=== PATIENT | male | born 1935 | race Caucasian/White ===

== ENCOUNTER 2020-02-17 04:42 | Inpatient (IN) ==
[2020-02-17] MEDS ORDERED: NITROGLYCERIN 2% OINT 1 INCH/GM PACK TOP STA (04:55)
[2020-02-17] MEDS ORDERED: MORPHINE 4 MG/1 ML VIAL IV STA (04:55)
[2020-02-17] MEDS ORDERED: ONDANSETRON 4 MG/2 ML VIAL IV STA (04:55)
[2020-02-17] MEDS ORDERED: methylPREDNISolone SOD SUC 125 MG/2 ML VIAL IV STA (04:55)
[2020-02-17] MEDS ORDERED: FUROSEMIDE 100 MG/10 ML VIAL IV STA (04:55)
[2020-02-17] MEDS ORDERED: VECURONIUM 10 MG VIAL IV STA (05:00)
[2020-02-17] MEDS ORDERED: ETOMIDATE 20 MG/10 ML VIAL IV STA (05:00)
[2020-02-17 05:33] LABS: Allen Test Positive; Pt O2 Delivery Device Ventilator
[2020-02-17 05:34] LABS: ABG Base Excess -2.9 MMOL/L (-2.5-2.5); ABG Oxygen Saturation 99.8 % (95-100); ABG PCO2 62.1 MM HG (35-48); ABG PH 7.229 (7.35-7.45); ABG TCO2 23.8 MMOL/L (23-27)
[2020-02-17 05:38] LABS: Basophils % 0.5 % (0.0-0.8); Eosinophils # 0.3 10*3/uL (0.0-0.87); Eosinophils % 3.1 % (0.00-10.9); Hematocrit 35.6 VOL% (42.0-52.0); Hemoglobin 11.4 GM/DL (14.0-18.0); Immature Granulocytes % 0.7 %; Immature Granulocytes Absolute 0.06 #; Lymphocytes # 2.5 10*3/uL (1.4-4.0); Lymphocytes % 27.8 % (21.2-54.2); Mean Corpuscular Volume 94.9 FL (87-102); Mean Platelet Volume 10.4 FL (9.6-12.0); Monocytes % 5.8 % (1.7-12.7); Neutrophils % 62.1 % (38.7-73.9); Platelet Count 245 T/CUMM (130-400); Red Blood Count 3.75 MC/CUMM (3.8-5.5); Red Cell Distribution Width 13.8 % (9.3-17.3); White Blood Count 8.8 T/CUMM (4-12)
[2020-02-17 05:47] LABS: PT Patient Result 10.9 SECS (9.8-11.9)
[2020-02-17] MEDS ORDERED: ENOXAPARIN 100 MG/ML SYRINGE SUBCUT STA (05:48)
[2020-02-17] MEDS ORDERED: ETOMIDATE 20 MG/10 ML VIAL IV ONE (05:53)
[2020-02-17] MEDS ORDERED: VECURONIUM 10 MG VIAL IV ONE (05:53)
[2020-02-17 06:16] LABS: Albumin 3.2 G/DL (3.4-5.0); Calcium 8.4 MG/DL (8.5-10.1); Total Protein 7.1 G/DL (6.4-8.3)
[2020-02-17] MEDS ORDERED: ALBUTEROL/IPRATROPIUM 3 ML NEB RESP TX PRN (06:21)
[2020-02-17] MEDS ORDERED: ONDANSETRON 4 MG/2 ML VIAL IV PRN (06:21)
[2020-02-17] MEDS ORDERED: ENOXAPARIN 40 MG/0.4 ML SYRINGE SUBCUT SCH (06:30)
[2020-02-17] MEDS ORDERED: GLUCAGON 1 MG VIAL IM PRN (06:33)
[2020-02-17] MEDS ORDERED: DEXTROSE 50% 25 GM/50 ML VIAL IV PRN (06:33)
[2020-02-17 07:44] LABS: Bacteria,Urine Occasional /HPF (Few); Bilirubin,Urine Negative (Negative); Blood, Urine Negative (Negative); Glucose,Urine (UA) 50 mg/dL (Negative); Hyaline Casts,Urine 3 /LPF (0-3); Ketones,Urine Negative (Negative); Mucus,Urine Occasional /LPF (Occasional); Nitrite,Urine Negative (Negative); Protein,Urine 30 MG/DL; RBC,Urine 1 /HPF (0-4); Urine Appearance CLEAR (Clear); Urine Color Yellow (Yellow); Urine Urobilinogen < 2.0 EU/DL (0.2-1.0); WBC,Urine 1 /HPF (0-6)
[2020-02-17] MEDS ORDERED: MIDAZOLAM 10 MG/2 ML VIAL ONE ×2 (07:59→10:11)
[2020-02-17] MEDS ORDERED: FUROSEMIDE 40 MG/4 ML VIAL IV SCH ×2 (08:00→09:00)
[2020-02-17] MEDS ORDERED: MIDAZOLAM 2 MG/2 ML VIAL IV STA (08:00)
[2020-02-17] MEDS ORDERED: MIDAZOLAM 10 MG/2 ML VIAL IV STA ×3 (10:20→14:06)
[2020-02-17 10:47] LABS: ABG Base Excess 2.3 MMOL/L (-2.5-2.5); ABG HCO3 26.5 MMOL/L (20-26); ABG Oxygen Saturation 99.1 % (95-100); ABG PCO2 44.1 MM HG (35-48); ABG PH 7.402 (7.35-7.45); ABG TCO2 24.8 MMOL/L (23-27); Allen Test Positive; Pt O2 Delivery Device Ventilator
[2020-02-17] MEDS: FAMOTIDINE 20 MG TABLET NG SCH ×2 (11:46→21:05)
[2020-02-17] MEDS: carvediloL 12.5 MG TABLET PO SCH ×2 (11:47→21:05)
[2020-02-17] MEDS: CLOPIDOGREL 75 MG TABLET PO SCH (11:47)
[2020-02-17] MEDS: INSULIN LISPRO 100 UNIT/ML SUBCUT SCH ×2 (12:11→18:42)
[2020-02-17] MEDS ORDERED: MAGNESIUM SULF RIDER 2 GM in PREMIX 1 EACH IV PRN (13:55)
[2020-02-17] MEDS ORDERED: LIDOCAINE 1% 20 ML VIAL ONE (15:00)
[2020-02-17 15:04] LABS: CKMB % 7.4 %
[2020-02-17 15:12] LABS: Troponin I 38.9 NG/ML (0.00-0.045)
[2020-02-17] MEDS ORDERED: ENOXAPARIN 30 MG/0.3 ML SYRINGE ONE (15:20)
[2020-02-17] MEDS ORDERED: NITROGLYCERIN 2% OINT 1 INCH/GM PACK TOP ONE (15:22)
[2020-02-17] MEDS ORDERED: NITROGLYCERIN DRIP 50 MG/250 ML BOTTLE IV PRN (16:06)
[2020-02-17] MEDS ORDERED: CLOPIDOGREL 300 MG TABLET ONE (16:12)
[2020-02-17] MEDS ORDERED: ENOXAPARIN 100 MG/ML SYRINGE SUBCUT SCH (17:00)
[2020-02-17] MEDS: RANOLAZINE 500 MG TABLET PO SCH ×2 (18:41→21:04)
[2020-02-17] MEDS: ISOSORBIDE MONONITRATE 20 MG TABLET PO SCH ×2 (18:41→21:05)
[2020-02-17] MEDS: FUROSEMIDE 40 MG/4 ML VIAL IV SCH (18:45)
[2020-02-17] MEDS: ASPIRIN EC 81 MG TABLET PO SCH (21:05)
[2020-02-18] MEDS: INSULIN LISPRO 100 UNIT/ML SUBCUT SCH ×5 (00:27→21:00)
[2020-02-18 04:11] LABS: Basophils % 0.1 % (0.0-0.8); Hematocrit 26.4 VOL% (42.0-52.0); Immature Granulocytes % 0.4 %; Immature Granulocytes Absolute 0.05 #; Lymphocytes # 0.8 10*3/uL (1.4-4.0); Lymphocytes % 6.8 % (21.2-54.2); Mean Corpuscular HGB Conc 32.6 GM/DL (32-36); Mean Corpuscular Volume 91.7 FL (87-102); Mean Platelet Volume 10.6 FL (9.6-12.0); Monocytes % 5.3 % (1.7-12.7); Neutrophils % 87.4 % (38.7-73.9); Red Blood Count 2.88 MC/CUMM (3.8-5.5); Red Cell Distribution Width 13.8 % (9.3-17.3); White Blood Count 11.9 T/CUMM (4-12)
[2020-02-18 04:14] LABS: Hemoglobin 8.6 GM/DL (14.0-18.0); Platelet Count 181 T/CUMM (130-400)
[2020-02-18 04:31] LABS: ABG Base Excess 1.6 MMOL/L (-2.5-2.5); ABG HCO3 25.9 MMOL/L (20-26); ABG PCO2 39.4 MM HG (35-48); ABG PH 7.428 (7.35-7.45); Allen Test Positive; Pt O2 Delivery Device Ventilator
[2020-02-18 04:41] LABS: Calcium 7.9 MG/DL (8.5-10.1); Osmolality,Calculated 287.4 MOS/KG (273-304); Risk Ratio 4.21
[2020-02-18] MEDS: FUROSEMIDE 40 MG/4 ML VIAL IV SCH ×2 (08:33→16:27)
[2020-02-18] MEDS: ISOSORBIDE MONONITRATE 20 MG TABLET PO SCH ×2 (08:33→20:33)
[2020-02-18] MEDS: carvediloL 12.5 MG TABLET PO SCH (08:34)
[2020-02-18] MEDS: RANOLAZINE 500 MG TABLET PO SCH ×2 (08:34→20:33)
[2020-02-18] MEDS: CLOPIDOGREL 75 MG TABLET PO SCH (08:34)
[2020-02-18] MEDS: FAMOTIDINE 20 MG TABLET NG SCH ×2 (08:34→20:33)
[2020-02-18 11:01] LABS: CKMB % 6.1 %
[2020-02-18 11:02] LABS: Troponin I 17.1 NG/ML (0.00-0.045)
[2020-02-18 11:34] LABS: ABG Base Excess 3.2 MMOL/L (-2.5-2.5); ABG HCO3 27.3 MMOL/L (20-26); ABG Oxygen Saturation 99.1 % (95-100); ABG PCO2 43.1 MM HG (35-48); ABG TCO2 25.8 MMOL/L (23-27)
[2020-02-18] MEDS: ROSUVASTATIN 20 MG TABLET PO SCH (20:33)
[2020-02-18] MEDS: carvediloL 25 MG TABLET PO SCH (20:33)
[2020-02-18] MEDS: ASPIRIN EC 81 MG TABLET PO SCH (20:33)
[2020-02-19 04:01] LABS: ABG Base Excess 5.7 MMOL/L (-2.5-2.5); ABG HCO3 29.5 MMOL/L (20-26); ABG Oxygen Saturation 95.7 % (95-100); ABG PCO2 47.3 MM HG (35-48); ABG PH 7.428 (7.35-7.45); ABG PO2 79.8 MM HG (80-95); ABG TCO2 26.7 MMOL/L (23-27); Allen Test Positive; Pt O2 Delivery Device BIPAP
[2020-02-19 04:42] LABS: Basophils % 0.2 % (0.0-0.8); Eosinophils % 0.1 % (0.00-10.9); Hematocrit 27.6 VOL% (42.0-52.0); Hemoglobin 9.2 GM/DL (14.0-18.0); Immature Granulocytes % 0.3 %; Immature Granulocytes Absolute 0.03 #; Lymphocytes # 1.4 10*3/uL (1.4-4.0); Mean Corpuscular HGB Conc 33.3 GM/DL (32-36); Mean Corpuscular Volume 90.5 FL (87-102); Mean Platelet Volume 10.3 FL (9.6-12.0); Monocytes % 6.9 % (1.7-12.7); Neutrophils % 77.5 % (38.7-73.9); Platelet Count 191 T/CUMM (130-400); Red Blood Count 3.05 MC/CUMM (3.8-5.5); Red Cell Distribution Width 14.3 % (9.3-17.3); White Blood Count 9.4 T/CUMM (4-12)
[2020-02-19 05:01] LABS: Calcium 8.2 MG/DL (8.5-10.1); Osmolality,Calculated 283.7 MOS/KG (273-304)
[2020-02-19] MEDS: POTASSIUM CHLORIDE RIDER 10 MEQ in PREMIX 1 EACH IV PRN ×2 (05:34→06:29)
[2020-02-19] MEDS: INSULIN LISPRO 100 UNIT/ML SUBCUT SCH ×4 (07:42→21:06)
[2020-02-19] MEDS: RANOLAZINE 500 MG TABLET PO SCH ×2 (08:58→21:04)
[2020-02-19] MEDS: ISOSORBIDE MONONITRATE 20 MG TABLET PO SCH ×2 (08:59→21:04)
[2020-02-19] MEDS: carvediloL 25 MG TABLET PO SCH ×2 (08:59→21:04)
[2020-02-19] MEDS: FAMOTIDINE 20 MG TABLET NG SCH ×2 (08:59→21:05)
[2020-02-19] MEDS: CLOPIDOGREL 75 MG TABLET PO SCH (08:59)
[2020-02-19] MEDS: FUROSEMIDE 40 MG/4 ML VIAL IV SCH ×2 (09:01→17:20)
[2020-02-19] MEDS: ROSUVASTATIN 20 MG TABLET PO SCH (21:03)
[2020-02-19] MEDS: ASPIRIN EC 81 MG TABLET PO SCH (21:05)
[2020-02-20] MEDS: INSULIN LISPRO 100 UNIT/ML SUBCUT SCH ×4 (07:41→20:55)
[2020-02-20] MEDS: FUROSEMIDE 40 MG/4 ML VIAL IV SCH ×2 (08:16→16:49)
[2020-02-20] MEDS: RANOLAZINE 500 MG TABLET PO SCH ×2 (08:17→20:54)
[2020-02-20] MEDS: FAMOTIDINE 20 MG TABLET NG SCH ×2 (08:17→20:53)
[2020-02-20] MEDS: CLOPIDOGREL 75 MG TABLET PO SCH (08:17)
[2020-02-20] MEDS: carvediloL 25 MG TABLET PO SCH ×2 (08:17→20:54)
[2020-02-20] MEDS: ISOSORBIDE MONONITRATE 20 MG TABLET PO SCH ×2 (08:19→20:53)
[2020-02-20] MEDS ORDERED: OLMESARTAN 20 MG TABLET PO ONE (12:01)
[2020-02-20] MEDS: ASPIRIN EC 81 MG TABLET PO SCH (20:53)
[2020-02-20] MEDS: ROSUVASTATIN 20 MG TABLET PO SCH (20:54)
[2020-02-21 06:02] LABS: Basophils % 0.4 % (0.0-0.8); Eosinophils # 0.3 10*3/uL (0.0-0.87); Hematocrit 33.3 VOL% (42.0-52.0); Hemoglobin 10.9 GM/DL (14.0-18.0); Immature Granulocytes % 1.7 %; Immature Granulocytes Absolute 0.14 #; Lymphocytes # 2.1 10*3/uL (1.4-4.0); Lymphocytes % 25.1 % (21.2-54.2); Mean Corpuscular HGB Conc 32.7 GM/DL (32-36); Mean Platelet Volume 10.5 FL (9.6-12.0); Monocytes % 8.2 % (1.7-12.7); Neutrophils % 61.6 % (38.7-73.9); Platelet Count 229 T/CUMM (130-400); Red Blood Count 3.62 MC/CUMM (3.8-5.5); Red Cell Distribution Width 13.6 % (9.3-17.3); White Blood Count 8.3 T/CUMM (4-12)
[2020-02-21 06:24] LABS: Hypochromasia Slight
[2020-02-21 06:25] LABS: Microcytosis Slight; Ovalocytes Slight; Platelet Estimate Normal
[2020-02-21 06:34] LABS: Calcium 8.8 MG/DL (8.5-10.1); Osmolality,Calculated 289.5 MOS/KG (273-304)
[2020-02-21] MEDS: INSULIN LISPRO 100 UNIT/ML SUBCUT SCH ×4 (09:25→20:27)
[2020-02-21] MEDS: OLMESARTAN 20 MG TABLET PO SCH (09:26)
[2020-02-21] MEDS: ISOSORBIDE MONONITRATE 20 MG TABLET PO SCH ×2 (09:26→21:40)
[2020-02-21] MEDS: carvediloL 25 MG TABLET PO SCH ×2 (09:26→21:41)
[2020-02-21] MEDS: FAMOTIDINE 20 MG TABLET NG SCH ×2 (09:26→21:40)
[2020-02-21] MEDS: CLOPIDOGREL 75 MG TABLET PO SCH (09:26)
[2020-02-21] MEDS: RANOLAZINE 500 MG TABLET PO SCH ×2 (09:26→21:41)
[2020-02-21] MEDS: FUROSEMIDE 40 MG/4 ML VIAL IV SCH ×2 (09:27→16:34)
[2020-02-21] MEDS: DOCUSATE SODIUM 100 MG CAPSULE PO SCH ×2 (12:25→21:41)
[2020-02-21] MEDS ORDERED: BISACODYL 5 MG TABLET PO ONE (13:13)
[2020-02-21] MEDS: ROSUVASTATIN 20 MG TABLET PO SCH (21:40)
[2020-02-21] MEDS: ASPIRIN EC 81 MG TABLET PO SCH (21:41)
[2020-02-22 04:48] LABS: Basophils % 0.3 % (0.0-0.8); Eosinophils # 0.3 10*3/uL (0.0-0.87); Eosinophils % 4.2 % (0.00-10.9); Immature Granulocytes % 0.8 %; Immature Granulocytes Absolute 0.06 #; Lymphocytes # 1.7 10*3/uL (1.4-4.0); Lymphocytes % 24.5 % (21.2-54.2); Mean Corpuscular HGB Conc 33.3 GM/DL (32-36); Mean Corpuscular Volume 90.9 FL (87-102); Mean Platelet Volume 10.4 FL (9.6-12.0); Monocytes % 9.9 % (1.7-12.7); Neutrophils % 60.3 % (38.7-73.9); Platelet Count 205 T/CUMM (130-400); Red Cell Distribution Width 13.4 % (9.3-17.3); White Blood Count 7.1 T/CUMM (4-12)
[2020-02-22 05:10] LABS: Calcium 8.6 MG/DL (8.5-10.1)
[2020-02-22] MEDS: INSULIN LISPRO 100 UNIT/ML SUBCUT SCH ×2 (08:42→12:10)
[2020-02-22] MEDS: ISOSORBIDE MONONITRATE 20 MG TABLET PO SCH (09:39)
[2020-02-22] MEDS: DOCUSATE SODIUM 100 MG CAPSULE PO SCH (09:39)
[2020-02-22] MEDS: CLOPIDOGREL 75 MG TABLET PO SCH (09:39)
[2020-02-22] MEDS: carvediloL 25 MG TABLET PO SCH (09:39)
[2020-02-22] MEDS: RANOLAZINE 500 MG TABLET PO SCH (09:39)
[2020-02-22] MEDS: FUROSEMIDE 40 MG/4 ML VIAL IV SCH (09:40)
[2020-02-22] MEDS: OLMESARTAN 20 MG TABLET PO SCH (09:40)
[2020-02-22] MEDS: FAMOTIDINE 20 MG TABLET NG SCH (09:49)
[2020-02-22] MEDS ORDERED: POTASSIUM CHLORIDE 20 MEQ TABLET PO ONE (10:58)
[2020-02-22 12:09] VITALS: BP 87/43
== END 2020-02-22 15:24 | disposition home or self-care (01) | DRG 246 ==
LOC: EDBD → EDUNIT# → N.ED 04:42 → SUATTDRO 06:21 → N.EDINP 06:21 → N.CC 17:36 → N.TELEN 02-19 16:10
PROVIDERS: ADMIT Internal Medicine; ATTEND Family Medicine

== ENCOUNTER 2020-09-29 06:57 | Inpatient (IN) ==
[2020-09-29 07:53] LABS: Basophils % 0.1 % (0.0-0.8); Eosinophils # 0.1 10*3/uL (0.0-0.87); Eosinophils % 0.8 % (0.00-10.9); Hematocrit 29.1 VOL% (42.0-52.0); Hemoglobin 9.2 GM/DL (14.0-18.0); Immature Granulocytes % 0.6 %; Immature Granulocytes Absolute 0.06 #; Lymphocytes # 0.9 10*3/uL (1.4-4.0); Lymphocytes % 9.4 % (21.2-54.2); Mean Corpuscular HGB Conc 31.6 GM/DL (32-36); Mean Corpuscular Volume 89.3 FL (87-102); Mean Platelet Volume 10.3 FL (9.6-12.0); Monocytes % 5.1 % (1.7-12.7); Platelet Count 170 T/CUMM (130-400); Red Blood Count 3.26 MC/CUMM (3.8-5.5); Red Cell Distribution Width 14.1 % (9.3-17.3); White Blood Count 9.6 T/CUMM (4-12)
[2020-09-29 07:59] LABS: Calcium 8.8 MG/DL (8.5-10.1); Osmolality,Calculated 285.8 MOS/KG (273-304); Potassium 3.9 MMOL/L (3.5-5.1)
[2020-09-29 08:04] LABS: PT Patient Result 11.7 SECS (10.5-12.0)
[2020-09-29 09:01] LABS: Bacteria,Urine Occasional /HPF (Few); Bilirubin,Urine Negative (Negative); Blood, Urine Negative (Negative); Glucose,Urine (UA) Negative (Negative); Hyaline Casts,Urine 1 /LPF (0-3); Ketones,Urine Negative (Negative); Mucus,Urine Occasional /LPF (Occasional); Nitrite,Urine Negative (Negative); Protein,Urine 30 MG/DL; RBC,Urine 6 /HPF (0-4); Squamous Epithelial Cell,Urine Occasional /HPF (0-10); Urine Appearance CLEAR (Clear); Urine Color Yellow (Yellow); Urine Specific Gravity 1.016 (1.001-1.035); Urine Urobilinogen < 2.0 EU/DL (0.2-1.0)
[2020-09-29] MEDS ORDERED: MORPHINE 4 MG/1 ML VIAL IV ONE (09:15)
[2020-09-29] MEDS ORDERED: ONDANSETRON 4 MG/2 ML VIAL ONE (09:15)
[2020-09-29] MEDS ORDERED: ONDANSETRON 4 MG/2 ML VIAL IV ONE (09:15)
[2020-09-29] MEDS ORDERED: MORPHINE 4 MG/1 ML VIAL ONE (09:16)
[2020-09-29] MEDS ORDERED: GLUCAGON 1 MG VIAL IM PRN ×2 (10:10→12:54)
[2020-09-29] MEDS ORDERED: DEXTROSE 50% 25 GM/50 ML VIAL IV PRN ×2 (10:10→12:54)
[2020-09-29] MEDS ORDERED: NITROGLYCERIN SL 0.4 MG TABLET SL PRN (10:59)
[2020-09-29] MEDS ORDERED: FLUTICASONE 50 MCG NASAL SPRAY 16 GM BOTTLE BOTH NARES PRN (12:27)
[2020-09-29 12:55] LABS: % Iron Saturation 17.2 % (18-50); Ferritin 42.1 ng/ml (26-388)
[2020-09-29 13:29] LABS: Folate 16.29 NG/ML (5.38-24.0)
[2020-09-29] MEDS ORDERED: TUBERCULIN SKIN TEST 0.1 ML SYRINGE INTRADERM ONE (13:59)
[2020-09-29] MEDS: RANOLAZINE 500 MG TABLET PO SCH ×2 (14:01→21:25)
[2020-09-29] MEDS: OLMESARTAN 20 MG TABLET PO SCH (14:02)
[2020-09-29] MEDS: carvediloL 25 MG TABLET PO SCH ×2 (14:02→21:25)
[2020-09-29] MEDS: hydroCHLOROthiazide 25 MG TABLET PO SCH (14:03)
[2020-09-29] MEDS: FUROSEMIDE 20 MG TABLET PO SCH (14:03)
[2020-09-29] MEDS: MORPHINE 4 MG/1 ML VIAL IV PRN (17:27)
[2020-09-29] MEDS: ISOSORBIDE MONONITRATE 20 MG TABLET PO SCH ×2 (17:37→21:25)
[2020-09-29] MEDS: INSULIN LISPRO 100 UNIT/ML SUBCUT SCH (18:54)
[2020-09-29] MEDS ORDERED: carvediloL 25 MG TABLET PO SCH (21:00)
[2020-09-29] MEDS ORDERED: RANOLAZINE 1000 MG PO SCH (21:00)
[2020-09-29] MEDS ORDERED: ISOSORBIDE MONONITRATE 10 MG PO SCH (21:00)
[2020-09-29] MEDS: ROSUVASTATIN 20 MG TABLET PO SCH (21:25)
[2020-09-29] MEDS: ASPIRIN EC 81 MG TABLET PO SCH (21:25)
[2020-09-30] MEDS: MORPHINE 4 MG/1 ML VIAL IV PRN (00:12)
[2020-09-30] MEDS: INSULIN LISPRO 100 UNIT/ML SUBCUT SCH ×5 (01:40→23:59)
[2020-09-30] MEDS ORDERED: MEPERIDINE 25 MG/1 ML VIAL IV PRN (06:32)
[2020-09-30] MEDS ORDERED: ONDANSETRON 4 MG/2 ML VIAL IV PRN (06:32)
[2020-09-30] MEDS ORDERED: PROMETHAZINE INJ 25 MG in SODIUM CHLORIDE 0.9% 50 ML IV PRN (06:32)
[2020-09-30] MEDS ORDERED: HYDROmorphone 2 MG/1 ML VIAL IV PRN (06:32)
[2020-09-30] MEDS ORDERED: diphenhydrAMINE 50 MG/1 ML VIAL IV PRN (06:32)
[2020-09-30] MEDS ORDERED: propofoL 200 MG/20 ML VIAL IV ONE (06:46)
[2020-09-30] MEDS ORDERED: LIDOCAINE 2% 5 ML VIAL ONE (06:46)
[2020-09-30] MEDS ORDERED: ONDANSETRON 4 MG/2 ML VIAL ONE (06:46)
[2020-09-30] MEDS ORDERED: SUCCINYLCHOLINE 200 MG/10 ML VIAL ONE (06:46)
[2020-09-30] MEDS ORDERED: DEXAMETHASONE 4 MG/1 ML VIAL ONE (06:46)
[2020-09-30] MEDS ORDERED: ROCURONIUM 50 MG/5 ML VIAL IV ONE (06:46)
[2020-09-30] MEDS ORDERED: fentaNYL 100 MCG/2 ML VIAL ONE (06:47)
[2020-09-30 07:03] LABS: Basophils % 0.3 % (0.0-0.8); Eosinophils # 0.3 10*3/uL (0.0-0.87); Eosinophils % 3.9 % (0.00-10.9); Hematocrit 27.1 VOL% (42.0-52.0); Hemoglobin 8.9 GM/DL (14.0-18.0); Immature Granulocytes % 0.3 %; Immature Granulocytes Absolute 0.02 #; Lymphocytes # 0.9 10*3/uL (1.4-4.0); Lymphocytes % 13.6 % (21.2-54.2); Mean Corpuscular HGB Conc 32.8 GM/DL (32-36); Mean Corpuscular Volume 89.4 FL (87-102); Mean Platelet Volume 10.1 FL (9.6-12.0); Neutrophils % 72.9 % (38.7-73.9); Platelet Count 141 T/CUMM (130-400); Red Blood Count 3.03 MC/CUMM (3.8-5.5); Red Cell Distribution Width 13.8 % (9.3-17.3); White Blood Count 6.9 T/CUMM (4-12)
[2020-09-30 07:16] LABS: Calcium 8.8 MG/DL (8.5-10.1); Osmolality,Calculated 276.2 MOS/KG (273-304); Potassium 4.1 MMOL/L (3.5-5.1)
[2020-09-30 07:21] LABS: Risk Ratio 2.02; VLDL CHOLESTEROL 19.2 MG/DL
[2020-09-30] MEDS ORDERED: PHENYLEPHRINE 10 MG/1 ML VIAL IV ONE (07:30)
[2020-09-30] MEDS ORDERED: ePHEDrine 50 MG/ML VIAL ONE (07:46)
[2020-09-30] MEDS ORDERED: ALBUMIN 5% 12.5 GM/250 ML VIAL IV ONE ×2 (07:47→07:48)
[2020-09-30] MEDS ORDERED: CALCIUM CHLORIDE 1,000 MG/10 ML VIAL IV ONE (08:02)
[2020-09-30] MEDS ORDERED: ceFAZolin 1,000 MG VIAL ONE (08:02)
[2020-09-30] MEDS ORDERED: SODIUM CHLORIDE 0.9% 100 ML IV ONE (08:15)
[2020-09-30] MEDS ORDERED: EPINEPHrine 1 MG/ML VIAL ONE (08:15)
[2020-09-30] MEDS ORDERED: ACETAMINOPHEN INJ 1,000 MG/100 ML VIAL IV ONE (08:15)
[2020-09-30] MEDS ORDERED: GLYCOPYRROLATE 0.4 MG/2 ML VIAL ONE (08:46)
[2020-09-30] MEDS ORDERED: NEOSTIGMINE 10 MG/10 ML VIAL ONE (08:46)
[2020-09-30] MEDS ORDERED: SEVOFLURANE 1 UNIT/15 MINUTE INH ONE (08:55)
[2020-09-30] MEDS ORDERED: VALSARTAN HYDROCHLOROTHIAZIDE PO SCH (09:00)
[2020-09-30] MEDS ORDERED: BUPIVACAINE 0.5% 50 ML VIAL ONE (09:13)
[2020-09-30] MEDS ORDERED: KETAMINE 500 MG/10 ML VIAL ONE (09:18)
[2020-09-30] MEDS ORDERED: MAGNESIUM HYDROXIDE SUSP 30 ML UDCUP PO PRN (10:25)
[2020-09-30] MEDS: ISOSORBIDE MONONITRATE 20 MG TABLET PO SCH ×2 (11:17→23:18)
[2020-09-30] MEDS: carvediloL 25 MG TABLET PO SCH ×2 (11:17→23:17)
[2020-09-30] MEDS: FUROSEMIDE 20 MG TABLET PO SCH (11:17)
[2020-09-30] MEDS: hydroCHLOROthiazide 25 MG TABLET PO SCH (11:18)
[2020-09-30] MEDS: RANOLAZINE 500 MG TABLET PO SCH ×2 (11:18→23:17)
[2020-09-30] MEDS: OLMESARTAN 20 MG TABLET PO SCH (11:18)
[2020-09-30] MEDS: CHOLECALCIFEROL 1,000 UNIT TABLET PO SCH (11:18)
[2020-09-30] MEDS: amLODIPine 2.5 MG TABLET PO SCH (11:18)
[2020-09-30] MEDS: oxyCODONE/ACETAMINOPHEN 5-325 MG TABLET PO PRN ×2 (11:19→23:18)
[2020-09-30] MEDS: INSULIN GLARGINE 100 UNIT/ML SUBCUT SCH (11:19)
[2020-09-30] MEDS ORDERED: ONDANSETRON 4 MG/2 ML VIAL IV ONE (14:20)
[2020-09-30] MEDS: ACETAMINOPHEN 500 MG TABLET PO SCH ×2 (14:29→18:30)
[2020-09-30] MEDS: ceFAZolin 2,000 MG/50 ML DUPLEX IV SCH ×2 (15:54→23:16)
[2020-09-30] MEDS: ROSUVASTATIN 20 MG TABLET PO SCH (23:17)
[2020-09-30] MEDS: ASPIRIN EC 81 MG TABLET PO SCH (23:17)
[2020-09-30] MEDS: IRON (CARBONYL) 45 MG TABLET PO SCH (23:18)
[2020-10-01] MEDS: ACETAMINOPHEN 500 MG TABLET PO SCH ×2 (02:14→10:11)
[2020-10-01] MEDS: INSULIN LISPRO 100 UNIT/ML SUBCUT SCH ×4 (05:57→23:18)
[2020-10-01 06:38] LABS: Hematocrit 24.1 VOL% (42.0-52.0); Hemoglobin 7.9 GM/DL (14.0-18.0); Immature Granulocytes % 0.3 %; Immature Granulocytes Absolute 0.02 #; Lymphocytes # 0.8 10*3/uL (1.4-4.0); Lymphocytes % 10.4 % (21.2-54.2); Mean Corpuscular HGB Conc 32.8 GM/DL (32-36); Mean Corpuscular Volume 88.6 FL (87-102); Mean Platelet Volume 10.8 FL (9.6-12.0); Monocytes % 11.4 % (1.7-12.7); Neutrophils % 77.9 % (38.7-73.9); Platelet Count 130 T/CUMM (130-400); Red Blood Count 2.72 MC/CUMM (3.8-5.5); Red Cell Distribution Width 13.5 % (9.3-17.3); White Blood Count 7.7 T/CUMM (4-12)
[2020-10-01 06:59] LABS: Calcium 8.9 MG/DL (8.5-10.1); Osmolality,Calculated 280.1 MOS/KG (273-304); Potassium 4.4 MMOL/L (3.5-5.1)
[2020-10-01] MEDS ORDERED: ACETAMINOPHEN 500 MG TABLET ONE (09:38)
[2020-10-01] MEDS: IRON (CARBONYL) 45 MG TABLET PO SCH ×2 (10:11→21:36)
[2020-10-01] MEDS: ISOSORBIDE MONONITRATE 20 MG TABLET PO SCH ×2 (10:12→21:36)
[2020-10-01] MEDS: hydroCHLOROthiazide 25 MG TABLET PO SCH (10:12)
[2020-10-01] MEDS: POTASSIUM CHLORIDE 8 MEQ CAPSULE PO SCH (10:12)
[2020-10-01] MEDS: carvediloL 25 MG TABLET PO SCH ×2 (10:12→21:36)
[2020-10-01] MEDS: amLODIPine 2.5 MG TABLET PO SCH (10:12)
[2020-10-01] MEDS: RANOLAZINE 500 MG TABLET PO SCH ×2 (10:12→21:36)
[2020-10-01] MEDS: CHOLECALCIFEROL 1,000 UNIT TABLET PO SCH (10:12)
[2020-10-01] MEDS: OLMESARTAN 20 MG TABLET PO SCH (10:12)
[2020-10-01] MEDS: FUROSEMIDE 20 MG TABLET PO SCH (12:14)
[2020-10-01] MEDS: CLOPIDOGREL 75 MG TABLET PO SCH (12:15)
[2020-10-01] MEDS: INSULIN GLARGINE 100 UNIT/ML SUBCUT SCH (12:15)
[2020-10-01] MEDS ORDERED: SODIUM CHLORIDE 0.9% 1,000 ML IV PRN (15:12)
[2020-10-01] MEDS: ROSUVASTATIN 20 MG TABLET PO SCH (21:35)
[2020-10-01] MEDS: cilostazoL 50 MG TABLET PO SCH (21:36)
[2020-10-01] MEDS: ASPIRIN EC 81 MG TABLET PO SCH (21:36)
[2020-10-02 05:38] LABS: Basophils % 0.1 % (0.0-0.8); Eosinophils # 0.1 10*3/uL (0.0-0.87); Eosinophils % 1.3 % (0.00-10.9); Hematocrit 24.3 VOL% (42.0-52.0); Hemoglobin 7.9 GM/DL (14.0-18.0); Immature Granulocytes % 0.3 %; Immature Granulocytes Absolute 0.02 #; Lymphocytes # 1.1 10*3/uL (1.4-4.0); Mean Corpuscular HGB Conc 32.5 GM/DL (32-36); Mean Corpuscular Volume 90.7 FL (87-102); Mean Platelet Volume 10.2 FL (9.6-12.0); Monocytes % 10.8 % (1.7-12.7); Neutrophils % 72.5 % (38.7-73.9); Platelet Count 122 T/CUMM (130-400); Red Blood Count 2.68 MC/CUMM (3.8-5.5); Red Cell Distribution Width 13.8 % (9.3-17.3); White Blood Count 7.2 T/CUMM (4-12)
[2020-10-02 05:55] LABS: Calcium 8.4 MG/DL (8.5-10.1); Osmolality,Calculated 279.4 MOS/KG (273-304); Potassium 4.1 MMOL/L (3.5-5.1)
[2020-10-02] MEDS: INSULIN LISPRO 100 UNIT/ML SUBCUT SCH ×3 (06:19→18:01)
[2020-10-02] MEDS: RANOLAZINE 500 MG TABLET PO SCH ×2 (08:36→21:12)
[2020-10-02] MEDS: CLOPIDOGREL 75 MG TABLET PO SCH (08:37)
[2020-10-02] MEDS: carvediloL 25 MG TABLET PO SCH ×2 (08:37→21:13)
[2020-10-02] MEDS: CHOLECALCIFEROL 1,000 UNIT TABLET PO SCH (08:37)
[2020-10-02] MEDS: OLMESARTAN 20 MG TABLET PO SCH (08:37)
[2020-10-02] MEDS: cilostazoL 50 MG TABLET PO SCH ×2 (08:37→21:13)
[2020-10-02] MEDS: IRON (CARBONYL) 45 MG TABLET PO SCH ×2 (08:38→21:13)
[2020-10-02] MEDS ORDERED: CLOPIDOGREL 75 MG TABLET PO SCH (09:00)
[2020-10-02] MEDS: ISOSORBIDE MONONITRATE 20 MG TABLET PO SCH ×2 (11:04→21:12)
[2020-10-02] MEDS: hydroCHLOROthiazide 25 MG TABLET PO SCH (11:04)
[2020-10-02] MEDS: amLODIPine 2.5 MG TABLET PO SCH (11:05)
[2020-10-02] MEDS ORDERED: SODIUM CHLORIDE 0.9% 1,000 ML IV PRN (11:24)
[2020-10-02] MEDS: TAMSULOSIN 0.4 MG CAPSULE PO SCH (11:56)
[2020-10-02] MEDS: FUROSEMIDE 20 MG TABLET PO SCH (11:56)
[2020-10-02] MEDS: INSULIN GLARGINE 100 UNIT/ML SUBCUT SCH (12:00)
[2020-10-02] MEDS: ROSUVASTATIN 20 MG TABLET PO SCH (21:12)
[2020-10-02] MEDS: ASPIRIN EC 81 MG TABLET PO SCH (21:13)
[2020-10-03] MEDS: INSULIN LISPRO 100 UNIT/ML SUBCUT SCH ×4 (00:53→18:46)
[2020-10-03 08:08] LABS: Basophils % 0.3 % (0.0-0.8); Eosinophils # 0.1 10*3/uL (0.0-0.87); Eosinophils % 0.6 % (0.00-10.9); Hemoglobin 8.8 GM/DL (14.0-18.0); Immature Granulocytes % 0.6 %; Immature Granulocytes Absolute 0.05 #; Lymphocytes # 0.9 10*3/uL (1.4-4.0); Lymphocytes % 11.7 % (21.2-54.2); Mean Corpuscular HGB Conc 33.8 GM/DL (32-36); Mean Corpuscular Volume 85.8 FL (87-102); Mean Platelet Volume 10.1 FL (9.6-12.0); Neutrophils % 79.8 % (38.7-73.9); Platelet Count 144 T/CUMM (130-400); Red Blood Count 3.03 MC/CUMM (3.8-5.5)
[2020-10-03 08:44] LABS: Osmolality,Calculated 283.2 MOS/KG (273-304); Potassium 3.9 MMOL/L (3.5-5.1)
[2020-10-03] MEDS: RANOLAZINE 500 MG TABLET PO SCH ×2 (08:57→20:58)
[2020-10-03] MEDS: ISOSORBIDE MONONITRATE 20 MG TABLET PO SCH ×2 (08:57→20:57)
[2020-10-03] MEDS: CLOPIDOGREL 75 MG TABLET PO SCH (08:57)
[2020-10-03] MEDS: TAMSULOSIN 0.4 MG CAPSULE PO SCH ×2 (08:57→20:58)
[2020-10-03] MEDS: CHOLECALCIFEROL 1,000 UNIT TABLET PO SCH (08:58)
[2020-10-03] MEDS: carvediloL 25 MG TABLET PO SCH (08:58)
[2020-10-03] MEDS: POTASSIUM CHLORIDE 8 MEQ CAPSULE PO SCH (08:58)
[2020-10-03] MEDS: cilostazoL 50 MG TABLET PO SCH ×2 (08:58→20:57)
[2020-10-03] MEDS: IRON (CARBONYL) 45 MG TABLET PO SCH ×2 (09:00→20:58)
[2020-10-03] MEDS: FUROSEMIDE 20 MG TABLET PO SCH (13:03)
[2020-10-03] MEDS: INSULIN GLARGINE 100 UNIT/ML SUBCUT SCH (13:54)
[2020-10-03] MEDS: ROSUVASTATIN 20 MG TABLET PO SCH (20:57)
[2020-10-03] MEDS: ASPIRIN EC 81 MG TABLET PO SCH (20:58)
[2020-10-03] MEDS: carvediloL 12.5 MG TABLET PO SCH (21:03)
[2020-10-04] MEDS: INSULIN LISPRO 100 UNIT/ML SUBCUT SCH ×5 (01:05→23:46)
[2020-10-04 05:15] LABS: Basophils % 0.1 % (0.0-0.8); Eosinophils # 0.1 10*3/uL (0.0-0.87); Eosinophils % 1.5 % (0.00-10.9); Hemoglobin 8.1 GM/DL (14.0-18.0); Immature Granulocytes % 0.4 %; Immature Granulocytes Absolute 0.03 #; Lymphocytes # 0.8 10*3/uL (1.4-4.0); Lymphocytes % 11.3 % (21.2-54.2); Mean Corpuscular HGB Conc 33.8 GM/DL (32-36); Mean Corpuscular Volume 86.6 FL (87-102); Mean Platelet Volume 10.1 FL (9.6-12.0); Monocytes % 7.5 % (1.7-12.7); Neutrophils % 79.2 % (38.7-73.9); Platelet Count 165 T/CUMM (130-400); Red Blood Count 2.77 MC/CUMM (3.8-5.5); White Blood Count 6.8 T/CUMM (4-12)
[2020-10-04 05:35] LABS: Calcium 8.5 MG/DL (8.5-10.1); Osmolality,Calculated 287.1 MOS/KG (273-304); Potassium 3.8 MMOL/L (3.5-5.1)
[2020-10-04] MEDS: ISOSORBIDE MONONITRATE 20 MG TABLET PO SCH ×2 (09:21→20:46)
[2020-10-04] MEDS: CHOLECALCIFEROL 1,000 UNIT TABLET PO SCH (09:21)
[2020-10-04] MEDS: IRON (CARBONYL) 45 MG TABLET PO SCH ×2 (09:22→20:46)
[2020-10-04] MEDS: carvediloL 12.5 MG TABLET PO SCH ×2 (09:22→20:46)
[2020-10-04] MEDS: CLOPIDOGREL 75 MG TABLET PO SCH (09:22)
[2020-10-04] MEDS: RANOLAZINE 500 MG TABLET PO SCH ×2 (09:22→20:46)
[2020-10-04] MEDS: TAMSULOSIN 0.4 MG CAPSULE PO SCH ×2 (09:22→20:45)
[2020-10-04] MEDS: cilostazoL 50 MG TABLET PO SCH ×2 (09:22→20:46)
[2020-10-04] MEDS: FUROSEMIDE 20 MG TABLET PO SCH (11:25)
[2020-10-04] MEDS: INSULIN GLARGINE 100 UNIT/ML SUBCUT SCH (11:35)
[2020-10-04] MEDS: ONDANSETRON 4 MG/2 ML VIAL IV PRN (11:35)
[2020-10-04] MEDS: ROSUVASTATIN 20 MG TABLET PO SCH (20:45)
[2020-10-04] MEDS: ASPIRIN EC 81 MG TABLET PO SCH (20:45)
[2020-10-05] MEDS: INSULIN LISPRO 100 UNIT/ML SUBCUT SCH ×3 (05:45→17:56)
[2020-10-05 07:54] LABS: Basophils % 0.2 % (0.0-0.8); Eosinophils # 0.2 10*3/uL (0.0-0.87); Eosinophils % 2.7 % (0.00-10.9); Hematocrit 23.6 VOL% (42.0-52.0); Hemoglobin 8.1 GM/DL (14.0-18.0); Immature Granulocytes % 0.5 %; Immature Granulocytes Absolute 0.03 #; Lymphocytes # 0.6 10*3/uL (1.4-4.0); Lymphocytes % 10.3 % (21.2-54.2); Mean Corpuscular HGB Conc 34.3 GM/DL (32-36); Mean Corpuscular Volume 86.1 FL (87-102); Mean Platelet Volume 9.8 FL (9.6-12.0); Monocytes % 9.5 % (1.7-12.7); Neutrophils % 76.8 % (38.7-73.9); Platelet Count 168 T/CUMM (130-400); Red Blood Count 2.74 MC/CUMM (3.8-5.5)
[2020-10-05 08:10] LABS: Calcium 8.3 MG/DL (8.5-10.1); Osmolality,Calculated 283.4 MOS/KG (273-304)
[2020-10-05] MEDS: carvediloL 12.5 MG TABLET PO SCH (08:42)
[2020-10-05] MEDS: POTASSIUM CHLORIDE 8 MEQ CAPSULE PO SCH (09:30)
[2020-10-05] MEDS: ISOSORBIDE MONONITRATE 20 MG TABLET PO SCH ×2 (09:30→21:02)
[2020-10-05] MEDS: CLOPIDOGREL 75 MG TABLET PO SCH (09:30)
[2020-10-05] MEDS: RANOLAZINE 500 MG TABLET PO SCH ×2 (09:30→21:01)
[2020-10-05] MEDS: TAMSULOSIN 0.4 MG CAPSULE PO SCH ×2 (09:31→21:01)
[2020-10-05] MEDS: cilostazoL 50 MG TABLET PO SCH ×2 (09:31→21:01)
[2020-10-05] MEDS: CHOLECALCIFEROL 1,000 UNIT TABLET PO SCH (09:31)
[2020-10-05] MEDS: IRON (CARBONYL) 45 MG TABLET PO SCH ×2 (09:31→21:01)
[2020-10-05] MEDS: ONDANSETRON 4 MG/2 ML VIAL IV PRN (09:37)
[2020-10-05] MEDS: FUROSEMIDE 20 MG TABLET PO SCH (11:46)
[2020-10-05] MEDS: INSULIN GLARGINE 100 UNIT/ML SUBCUT SCH (11:54)
[2020-10-05] MEDS: carvediloL 3.125 MG TABLET PO SCH (21:01)
[2020-10-05] MEDS: ROSUVASTATIN 20 MG TABLET PO SCH (21:01)
[2020-10-05] MEDS: ASPIRIN EC 81 MG TABLET PO SCH (21:01)
[2020-10-05] MEDS: oxyCODONE/ACETAMINOPHEN 5-325 MG TABLET PO PRN (22:18)
[2020-10-06] MEDS: MORPHINE 4 MG/1 ML VIAL IV PRN ×3 (00:05→21:57)
[2020-10-06] MEDS: INSULIN LISPRO 100 UNIT/ML SUBCUT SCH ×5 (00:47→23:34)
[2020-10-06] MEDS: oxyCODONE/ACETAMINOPHEN 5-325 MG TABLET PO PRN ×2 (05:04→09:36)
[2020-10-06 06:45] LABS: Osmolality,Calculated 286.2 MOS/KG (273-304); Potassium 4.1 MMOL/L (3.5-5.1)
[2020-10-06 08:31] LABS: Basophils % 0.3 % (0.0-0.8); Eosinophils # 0.2 10*3/uL (0.0-0.87); Eosinophils % 2.7 % (0.00-10.9); Hematocrit 23.8 VOL% (42.0-52.0); Hemoglobin 7.8 GM/DL (14.0-18.0); Immature Granulocytes % 0.7 %; Immature Granulocytes Absolute 0.04 #; Lymphocytes # 0.8 10*3/uL (1.4-4.0); Mean Corpuscular HGB Conc 32.8 GM/DL (32-36); Mean Corpuscular Volume 88.8 FL (87-102); Neutrophils % 73.3 % (38.7-73.9); Platelet Count 190 T/CUMM (130-400); Red Blood Count 2.68 MC/CUMM (3.8-5.5); Red Cell Distribution Width 14.1 % (9.3-17.3)
[2020-10-06] MEDS: carvediloL 3.125 MG TABLET PO SCH ×2 (09:31→20:59)
[2020-10-06] MEDS: CHOLECALCIFEROL 1,000 UNIT TABLET PO SCH (09:31)
[2020-10-06] MEDS: CLOPIDOGREL 75 MG TABLET PO SCH (09:31)
[2020-10-06] MEDS: ISOSORBIDE MONONITRATE 20 MG TABLET PO SCH ×2 (09:31→20:59)
[2020-10-06] MEDS: cilostazoL 50 MG TABLET PO SCH ×2 (09:32→21:00)
[2020-10-06] MEDS: TAMSULOSIN 0.4 MG CAPSULE PO SCH ×2 (09:32→20:59)
[2020-10-06] MEDS: RANOLAZINE 500 MG TABLET PO SCH ×2 (09:32→20:59)
[2020-10-06] MEDS: IRON (CARBONYL) 45 MG TABLET PO SCH ×2 (09:36→21:00)
[2020-10-06] MEDS ORDERED: SODIUM CHLORIDE 0.9% 1,000 ML IV PRN ×2 (11:38→11:41)
[2020-10-06] MEDS: INSULIN GLARGINE 100 UNIT/ML SUBCUT SCH (13:08)
[2020-10-06 20:40] LABS: Hematocrit 28.2 VOL% (42.0-52.0)
[2020-10-06] MEDS: ROSUVASTATIN 20 MG TABLET PO SCH (21:00)
[2020-10-06] MEDS: ASPIRIN EC 81 MG TABLET PO SCH (21:00)
[2020-10-06 21:15] LABS: Bacteria,Urine Many /HPF (Few); Bilirubin,Urine Negative (Negative); Blood, Urine Moderate mg/dL (Negative); Glucose,Urine (UA) Negative (Negative); Granular Casts,Urine 156 /LPF (0-1); Ketones,Urine 5 mg/dL (Negative); Mucus,Urine Occasional /LPF (Occasional); Nitrite,Urine Negative (Negative); Protein,Urine 100 MG/DL; RBC,Urine 42 /HPF (0-4); Urine Appearance CLOUDY (Clear); Urine Color Yellow (Yellow); Urine Specific Gravity 1.013 (1.001-1.035); Urine Urobilinogen < 2.0 EU/DL (0.2-1.0)
[2020-10-06] MEDS: ONDANSETRON 4 MG/2 ML VIAL IV PRN (21:56)
[2020-10-06] MEDS ORDERED: METHOCARBAMOL INJ 500 MG in SODIUM CHLORIDE 0.9% 100 ML IV ONE (23:16)
[2020-10-07] MEDS: oxyCODONE/ACETAMINOPHEN 5-325 MG TABLET PO PRN ×3 (00:58→20:16)
[2020-10-07] MEDS: INSULIN LISPRO 100 UNIT/ML SUBCUT SCH ×3 (05:40→17:26)
[2020-10-07 05:58] LABS: Basophils % 0.3 % (0.0-0.8); Eosinophils # 0.2 10*3/uL (0.0-0.87); Eosinophils % 3.6 % (0.00-10.9); Hematocrit 28.2 VOL% (42.0-52.0); Hemoglobin 9.1 GM/DL (14.0-18.0); Immature Granulocytes % 0.4 %; Immature Granulocytes Absolute 0.03 #; Lymphocytes # 0.8 10*3/uL (1.4-4.0); Lymphocytes % 11.9 % (21.2-54.2); Mean Corpuscular HGB Conc 32.3 GM/DL (32-36); Mean Corpuscular Volume 88.7 FL (87-102); Mean Platelet Volume 9.6 FL (9.6-12.0); Neutrophils % 74.8 % (38.7-73.9); Platelet Count 211 T/CUMM (130-400); Red Blood Count 3.18 MC/CUMM (3.8-5.5); Red Cell Distribution Width 13.8 % (9.3-17.3); White Blood Count 6.7 T/CUMM (4-12)
[2020-10-07 06:12] LABS: Calcium 8.5 MG/DL (8.5-10.1); Osmolality,Calculated 289.1 MOS/KG (273-304); Potassium 4.2 MMOL/L (3.5-5.1)
[2020-10-07] MEDS: TAMSULOSIN 0.4 MG CAPSULE PO SCH ×2 (08:49→20:04)
[2020-10-07] MEDS: cilostazoL 50 MG TABLET PO SCH ×2 (08:49→20:07)
[2020-10-07] MEDS: RANOLAZINE 500 MG TABLET PO SCH ×2 (08:49→20:06)
[2020-10-07] MEDS: POTASSIUM CHLORIDE 8 MEQ CAPSULE PO SCH (08:49)
[2020-10-07] MEDS: CHOLECALCIFEROL 1,000 UNIT TABLET PO SCH (08:49)
[2020-10-07] MEDS: CLOPIDOGREL 75 MG TABLET PO SCH (08:50)
[2020-10-07] MEDS: ISOSORBIDE MONONITRATE 20 MG TABLET PO SCH ×2 (08:50→20:05)
[2020-10-07] MEDS: carvediloL 3.125 MG TABLET PO SCH ×2 (08:50→20:06)
[2020-10-07] MEDS: IRON (CARBONYL) 45 MG TABLET PO SCH ×2 (08:51→20:06)
[2020-10-07] MEDS ORDERED: CALCIUM CARBONATE CHEW 500 MG TABLET PO PRN (10:29)
[2020-10-07] MEDS: PANTOPRAZOLE 20 MG TABLET PO SCH (13:19)
[2020-10-07] MEDS: INSULIN GLARGINE 100 UNIT/ML SUBCUT SCH (13:20)
[2020-10-07] MEDS: ROSUVASTATIN 20 MG TABLET PO SCH (20:06)
[2020-10-07] MEDS: ASPIRIN EC 81 MG TABLET PO SCH (20:06)
[2020-10-08] MEDS: INSULIN LISPRO 100 UNIT/ML SUBCUT SCH ×4 (02:44→18:22)
[2020-10-08 05:25] LABS: Basophils % 0.3 % (0.0-0.8); Eosinophils # 0.2 10*3/uL (0.0-0.87); Eosinophils % 2.8 % (0.00-10.9); Hematocrit 27.1 VOL% (42.0-52.0); Hemoglobin 8.7 GM/DL (14.0-18.0); Immature Granulocytes % 0.4 %; Immature Granulocytes Absolute 0.03 #; Lymphocytes # 0.7 10*3/uL (1.4-4.0); Lymphocytes % 9.6 % (21.2-54.2); Mean Corpuscular HGB Conc 32.1 GM/DL (32-36); Mean Corpuscular Volume 89.1 FL (87-102); Mean Platelet Volume 9.7 FL (9.6-12.0); Monocytes % 8.6 % (1.7-12.7); Neutrophils % 78.3 % (38.7-73.9); Platelet Count 245 T/CUMM (130-400); Red Blood Count 3.04 MC/CUMM (3.8-5.5); Red Cell Distribution Width 13.7 % (9.3-17.3); White Blood Count 7.5 T/CUMM (4-12)
[2020-10-08 06:02] LABS: Albumin 1.9 G/DL (3.4-5.0); Bilirubin,Total 1.1 MG/DL (0.2-1.0); Calcium 8.4 MG/DL (8.5-10.1); Potassium 4.5 MMOL/L (3.5-5.1); Total Protein 5.8 G/DL (6.4-8.2)
[2020-10-08 06:07] LABS: Uric Acid 5.1 MG/DL (3.5-7.2)
[2020-10-08] MEDS ORDERED: POLYETHYLENE GLYCOL POWDER 17 GM PACK PO SCH (09:00)
[2020-10-08] MEDS: CHOLECALCIFEROL 1,000 UNIT TABLET PO SCH (09:25)
[2020-10-08] MEDS: CLOPIDOGREL 75 MG TABLET PO SCH (09:25)
[2020-10-08] MEDS: ISOSORBIDE MONONITRATE 20 MG TABLET PO SCH ×2 (09:25→20:48)
[2020-10-08] MEDS: carvediloL 3.125 MG TABLET PO SCH ×2 (09:25→20:48)
[2020-10-08] MEDS: RANOLAZINE 500 MG TABLET PO SCH ×2 (09:25→20:47)
[2020-10-08] MEDS: cilostazoL 50 MG TABLET PO SCH ×2 (09:25→20:48)
[2020-10-08] MEDS: PANTOPRAZOLE 20 MG TABLET PO SCH (09:26)
[2020-10-08] MEDS: TAMSULOSIN 0.4 MG CAPSULE PO SCH ×2 (09:26→20:48)
[2020-10-08] MEDS: IRON (CARBONYL) 45 MG TABLET PO SCH (09:34)
[2020-10-08] MEDS: DOCUSATE SODIUM 100 MG CAPSULE PO SCH ×2 (11:12→20:48)
[2020-10-08] MEDS: cefTRIAXone 1,000 MG in SODIUM CHLORIDE 0.9% 100 ML IV SCH (11:12)
[2020-10-08] MEDS: INSULIN GLARGINE 100 UNIT/ML SUBCUT SCH (13:08)
[2020-10-08] MEDS: POLYETHYLENE GLYCOL POWDER 17 GM PACK PO SCH ×2 (18:12→20:49)
[2020-10-08] MEDS: ROSUVASTATIN 20 MG TABLET PO SCH (20:48)
[2020-10-08] MEDS: ASPIRIN EC 81 MG TABLET PO SCH (20:48)
[2020-10-08] MEDS: SENNA 8.6 MG TABLET PO SCH (20:48)
[2020-10-09] MEDS: INSULIN LISPRO 100 UNIT/ML SUBCUT SCH ×4 (01:11→18:16)
[2020-10-09 04:55] LABS: Basophils % 0.2 % (0.0-0.8); Eosinophils # 0.2 10*3/uL (0.0-0.87); Eosinophils % 2.3 % (0.00-10.9); Hematocrit 25.7 VOL% (42.0-52.0); Hemoglobin 8.8 GM/DL (14.0-18.0); Immature Granulocytes % 0.7 %; Immature Granulocytes Absolute 0.06 #; Lymphocytes # 0.6 10*3/uL (1.4-4.0); Lymphocytes % 7.8 % (21.2-54.2); Mean Corpuscular HGB Conc 34.2 GM/DL (32-36); Mean Corpuscular Volume 86.5 FL (87-102); Mean Platelet Volume 9.3 FL (9.6-12.0); Monocytes % 8.8 % (1.7-12.7); Neutrophils % 80.2 % (38.7-73.9); Platelet Count 254 T/CUMM (130-400); Red Blood Count 2.97 MC/CUMM (3.8-5.5); Red Cell Distribution Width 13.8 % (9.3-17.3); White Blood Count 8.1 T/CUMM (4-12)
[2020-10-09 05:17] LABS: % Iron Saturation 18.1 % (18-50); Ferritin 291.3 ng/ml (26-388)
[2020-10-09 05:47] LABS: Albumin 1.9 G/DL (3.4-5.0); Bilirubin,Total 0.8 MG/DL (0.2-1.0); Calcium 8.5 MG/DL (8.5-10.1); Potassium 4.2 MMOL/L (3.5-5.1)
[2020-10-09] MEDS ORDERED: oxyCODONE/ACETAMINOPHEN 5-325 MG TABLET PO PRN (06:29)
[2020-10-09 06:38] LABS: Sedimentation Rate-Westergren 127 MM/HR (0-20)
[2020-10-09 07:17] LABS: Folate 9.25 NG/ML (5.38-24.0); Vitamin B12 613 PG/ML (211-911)
[2020-10-09] MEDS: RANOLAZINE 500 MG TABLET PO SCH ×2 (08:59→20:04)
[2020-10-09] MEDS: cilostazoL 50 MG TABLET PO SCH ×2 (09:00→20:05)
[2020-10-09] MEDS: DOCUSATE SODIUM 100 MG CAPSULE PO SCH ×2 (09:00→20:04)
[2020-10-09] MEDS: carvediloL 3.125 MG TABLET PO SCH ×2 (09:00→20:06)
[2020-10-09] MEDS: POTASSIUM CHLORIDE 8 MEQ CAPSULE PO SCH (09:00)
[2020-10-09] MEDS: CLOPIDOGREL 75 MG TABLET PO SCH (09:00)
[2020-10-09] MEDS: ISOSORBIDE MONONITRATE 20 MG TABLET PO SCH ×2 (09:00→20:05)
[2020-10-09] MEDS: CHOLECALCIFEROL 1,000 UNIT TABLET PO SCH (09:00)
[2020-10-09 09:14] LABS: Immunoglobulin A (Chem) 286 MG/DL (70-400); Immunoglobulin G (Chem) 693 MG/DL (700-1600); Immunoglobulin M (Chem) 30 MG/DL (40-230)
[2020-10-09] MEDS: cefTRIAXone 1,000 MG in SODIUM CHLORIDE 0.9% 100 ML IV SCH (09:14)
[2020-10-09] MEDS: PANTOPRAZOLE 20 MG TABLET PO SCH (09:14)
[2020-10-09] MEDS: LINACLOTIDE 145 MCG CAPSULE PO SCH (09:14)
[2020-10-09] MEDS: POLYETHYLENE GLYCOL POWDER 17 GM PACK PO SCH ×3 (09:14→22:34)
[2020-10-09] MEDS: TAMSULOSIN 0.4 MG CAPSULE PO SCH ×2 (09:14→20:05)
[2020-10-09 10:53] LABS: Hemoglobin A1 (Alkaline) 97.4 % (96.5-98.5); Hemoglobin A2 (Alkaline) 2.6 % (1.5-3.5)
[2020-10-09 11:23] LABS: Albumin (SPE) 2.8 G/DL (3.2-5.3); Albumin (SPE) Rel % 46.4 %; Alpha 1 (SPE) 0.4 G/DL (0.1-0.4); Alpha 1 (SPE) Rel % 6.1 %; Alpha 2 (SPE) 1.2 G/DL (0.4-1.0); Alpha 2 (SPE) Rel % 20.3 %; Beta (SPE) Rel % 16.2 %; Gamma (SPE) 0.7 G/DL (0.7-1.7)
[2020-10-09] MEDS: INSULIN GLARGINE 100 UNIT/ML SUBCUT SCH (11:54)
[2020-10-09] MEDS ORDERED: GLYCERIN ADULT SUPP RECTAL ONE (15:00)
[2020-10-09] MEDS: ROSUVASTATIN 20 MG TABLET PO SCH (20:04)
[2020-10-09] MEDS: ASPIRIN EC 81 MG TABLET PO SCH (20:05)
[2020-10-09] MEDS: SENNA 8.6 MG TABLET PO SCH (20:05)
[2020-10-09] MEDS ORDERED: SENNA 8.6 MG TABLET PO SCH (21:00)
[2020-10-09] MEDS: LACTULOSE 20 GM/30 ML UDCUP PO SCH (22:34)
[2020-10-10] MEDS: INSULIN LISPRO 100 UNIT/ML SUBCUT SCH ×3 (02:49→12:43)
[2020-10-10 06:23] LABS: Basophils % 0.2 % (0.0-0.8); Eosinophils # 0.3 10*3/uL (0.0-0.87); Eosinophils % 2.5 % (0.00-10.9); Hematocrit 26.7 VOL% (42.0-52.0); Hemoglobin 8.6 GM/DL (14.0-18.0); Immature Granulocytes % 0.7 %; Immature Granulocytes Absolute 0.07 #; Lymphocytes # 0.8 10*3/uL (1.4-4.0); Lymphocytes % 8.4 % (21.2-54.2); Mean Corpuscular HGB Conc 32.2 GM/DL (32-36); Mean Corpuscular Volume 88.7 FL (87-102); Mean Platelet Volume 9.5 FL (9.6-12.0); Monocytes % 6.9 % (1.7-12.7); Neutrophils % 81.3 % (38.7-73.9); Platelet Count 321 T/CUMM (130-400); Red Blood Count 3.01 MC/CUMM (3.8-5.5); Red Cell Distribution Width 13.9 % (9.3-17.3)
[2020-10-10 06:36] LABS: Calcium 8.7 MG/DL (8.5-10.1); Osmolality,Calculated 281.1 MOS/KG (273-304); Potassium 4.5 MMOL/L (3.5-5.1)
[2020-10-10 07:01] LABS: Random Urine Protein (Bench) 147 MG/DL (<11.9)
[2020-10-10] MEDS: PANTOPRAZOLE 20 MG TABLET PO SCH (08:17)
[2020-10-10] MEDS: TAMSULOSIN 0.4 MG CAPSULE PO SCH (08:17)
[2020-10-10] MEDS: CHOLECALCIFEROL 1,000 UNIT TABLET PO SCH (08:17)
[2020-10-10] MEDS: LINACLOTIDE 145 MCG CAPSULE PO SCH (08:17)
[2020-10-10] MEDS: RANOLAZINE 500 MG TABLET PO SCH (08:17)
[2020-10-10] MEDS: DOCUSATE SODIUM 100 MG CAPSULE PO SCH (08:17)
[2020-10-10] MEDS: carvediloL 3.125 MG TABLET PO SCH (08:18)
[2020-10-10] MEDS: ISOSORBIDE MONONITRATE 20 MG TABLET PO SCH (08:18)
[2020-10-10] MEDS: POLYETHYLENE GLYCOL POWDER 17 GM PACK PO SCH (08:18)
[2020-10-10] MEDS: CLOPIDOGREL 75 MG TABLET PO SCH (08:18)
[2020-10-10] MEDS: cilostazoL 50 MG TABLET PO SCH (08:18)
[2020-10-10] MEDS: LACTULOSE 20 GM/30 ML UDCUP PO SCH (08:18)
[2020-10-10] MEDS: cefTRIAXone 1,000 MG in SODIUM CHLORIDE 0.9% 100 ML IV SCH (08:26)
[2020-10-10 09:42] LABS: Albumin (UPER) 0.7 MG/DL; Albumin (UPER) Rel% 25.3 %; Alpha 1 (UPER) 0.3 MG/DL; Alpha 2 (UPER) 0.7 MG/DL; Alpha 2 (UPER) Rel % 23.3 %; Beta (UPER) 0.3 MG/DL; Beta (UPER) Rel % 11.2 %; Gamma (UPER) 0.9 MG/DL; Gamma (UPER) Rel % 30.2 %
[2020-10-10 09:51] LABS: Immuno Free Light Chain Lambda 4.27 MG/DL (0.57-2.63); Immuno Free Light Chain Ratio 1.38 MG/DL (0.26-1.65)
[2020-10-10] MEDS: INSULIN GLARGINE 100 UNIT/ML SUBCUT SCH (12:25)
[2020-10-10 17:56] VITALS: BP 115/42
[2020-10-10] MEDS ORDERED: CEFUROXIME 250 MG TABLET PO SCH (21:00)
[2020-10-11] MEDS ORDERED: LINACLOTIDE 145 MCG CAPSULE PO SCH (07:30)
== END 2020-10-10 18:00 | DRG 521 ==
LOC: EDBD → EDUNIT# → N.ED 06:57 → SUATTDRO 08:12 → N.EDINP 08:12 → N.3E 08:38
PROVIDERS: ADMIT Nurse Practitioner Family; ATTEND Hospitalist

== ENCOUNTER 2020-10-18 21:33 | Inpatient (IN) ==
[2020-10-18] MEDS ORDERED: DILTIAZEM 50 MG/10 ML VIAL IV STA ×3 (21:57→22:45)
[2020-10-18] MEDS ORDERED: DILTIAZEM 25 MG/5 ML VIAL IV ONE (21:57)
[2020-10-18] MEDS ORDERED: FUROSEMIDE 100 MG/10 ML VIAL ONE (22:04)
[2020-10-18] MEDS ORDERED: DILTIAZEM 100 MG VIAL.ADD IV ONE (22:10)
[2020-10-18] MEDS ORDERED: FUROSEMIDE 40 MG/4 ML VIAL IV STA (22:15)
[2020-10-18 22:25] LABS: ABG Base Excess -2.9 MMOL/L (-2.5-2.5); ABG Oxygen Saturation 99.3 % (95-100); ABG PCO2 58.4 MM HG (35-48); ABG PH 7.243 (7.35-7.45); ABG TCO2 23.4 MMOL/L (23-27)
[2020-10-18] MEDS: DILTIAZEM INJ 100 MG in SODIUM CHLORIDE 0.9% 100 ML IV SCH (22:27)
[2020-10-18 22:34] LABS: Basophils # 0.1 10*3/uL (0.0-0.2); Basophils % 0.3 % (0.0-0.8); Eosinophils # 0.4 10*3/uL (0.0-0.87); Eosinophils % 2.1 % (0.00-10.9); Hematocrit 33.2 VOL% (42.0-52.0); Hemoglobin 10.2 GM/DL (14.0-18.0); Immature Granulocytes % 0.6 %; Immature Granulocytes Absolute 0.11 #; Lymphocytes # 3.2 10*3/uL (1.4-4.0); Lymphocytes % 17.9 % (21.2-54.2); Mean Corpuscular HGB Conc 30.7 GM/DL (32-36); Mean Corpuscular Volume 93.3 FL (87-102); Mean Platelet Volume 9.9 FL (9.6-12.0); Monocytes % 5.2 % (1.7-12.7); Neutrophils % 73.9 % (38.7-73.9); Platelet Count 403 T/CUMM (130-400); Red Blood Count 3.56 MC/CUMM (3.8-5.5); Red Cell Distribution Width 14.7 % (9.3-17.3); White Blood Count 17.9 T/CUMM (4-12)
[2020-10-18 22:56] LABS: Albumin 2.8 G/DL (3.4-5.0); Bilirubin,Total 0.7 MG/DL (0.2-1.0); Calcium 8.5 MG/DL (8.5-10.1); Osmolality,Calculated 290.8 MOS/KG (273-304); Potassium 4.5 MMOL/L (3.5-5.1)
[2020-10-18 23:29] LABS: Bilirubin,Urine Negative (Negative); Blood, Urine Negative (Negative); Glucose,Urine (UA) 150 mg/dL (Negative); Granular Casts,Urine 29 /LPF (0-1); Hyaline Casts,Urine 11 /LPF (0-3); Ketones,Urine Negative (Negative); Mucus,Urine Occasional /LPF (Occasional); Nitrite,Urine Negative (Negative); Protein,Urine 30 MG/DL; RBC,Urine 2 /HPF (0-4); Squamous Epithelial Cell,Urine Occasional /HPF (0-10); Urine Appearance Slightly Hazy (Clear); Urine Color Amber (Yellow); Urine Specific Gravity 1.016 (1.001-1.035); Urine Urobilinogen < 2.0 EU/DL (0.2-1.0)
[2020-10-19] MEDS ORDERED: DEXTROSE 50% 25 GM/50 ML VIAL IV PRN ×2 (02:23→11:10)
[2020-10-19] MEDS ORDERED: GLUCAGON 1 MG VIAL IM PRN ×2 (02:23→11:10)
[2020-10-19] MEDS ORDERED: DOCUSATE SODIUM 100 MG CAPSULE PO PRN (02:24)
[2020-10-19] MEDS ORDERED: ONDANSETRON 4 MG/2 ML VIAL IV PRN (02:24)
[2020-10-19] MEDS ORDERED: ACETAMINOPHEN 325 MG TABLET PO PRN (02:24)
[2020-10-19] MEDS ORDERED: ENOXAPARIN 100 MG/ML SYRINGE SUBCUT SCH (03:00)
[2020-10-19 04:51] LABS: ABG Base Excess 1.1 MMOL/L (-2.5-2.5); ABG HCO3 25.4 MMOL/L (20-26); ABG Oxygen Saturation 99.2 % (95-100); ABG PCO2 48.1 MM HG (35-48); ABG PH 7.358 (7.35-7.45); ABG TCO2 24.9 MMOL/L (23-27)
[2020-10-19 05:31] LABS: Calcium 8.4 MG/DL (8.5-10.1); Osmolality,Calculated 288.7 MOS/KG (273-304); Potassium 4.4 MMOL/L (3.5-5.1)
[2020-10-19 06:10] LABS: Basophils % 0.2 % (0.0-0.8); Hematocrit 27.2 VOL% (42.0-52.0); Hemoglobin 8.5 GM/DL (14.0-18.0); Immature Granulocytes % 0.6 %; Immature Granulocytes Absolute 0.07 #; Lymphocytes % 8.7 % (21.2-54.2); Mean Corpuscular HGB Conc 31.3 GM/DL (32-36); Mean Corpuscular Volume 92.2 FL (87-102); Neutrophils % 85.5 % (38.7-73.9); Red Blood Count 2.95 MC/CUMM (3.8-5.5); Red Cell Distribution Width 14.8 % (9.3-17.3)
[2020-10-19 06:13] LABS: Platelet Count 269 T/CUMM (130-400); White Blood Count 11.8 T/CUMM (4-12)
[2020-10-19] MEDS: DILTIAZEM INJ 100 MG in SODIUM CHLORIDE 0.9% 100 ML IV SCH (07:03)
[2020-10-19] MEDS: INSULIN LISPRO 100 UNIT/ML SUBCUT SCH ×4 (08:12→20:27)
[2020-10-19] MEDS ORDERED: AMIODARONE INJ 150 MG in DEXTROSE 5% 100 ML IV ONE (09:07)
[2020-10-19] MEDS ORDERED: AMIODARONE INJ 450 MG in DEXTROSE 5% 241 ML IV SCH (09:30)
[2020-10-19] MEDS: FUROSEMIDE 40 MG/4 ML VIAL IV SCH ×2 (09:46→16:44)
[2020-10-19] MEDS: CLOPIDOGREL 75 MG TABLET PO SCH (11:28)
[2020-10-19] MEDS: RANOLAZINE 500 MG TABLET PO SCH ×2 (11:28→20:17)
[2020-10-19] MEDS: ISOSORBIDE MONONITRATE 20 MG TABLET PO SCH ×2 (11:28→20:24)
[2020-10-19] MEDS: ASCORBIC ACID 500 MG TABLET PO SCH ×2 (12:28→20:17)
[2020-10-19] MEDS: RIVAROXABAN 15 MG TABLET PO SCH (12:28)
[2020-10-19] MEDS ORDERED: SKIN HEALING OINT (AQUAPHOR) 50 GM TUBE TOP PRN (12:33)
[2020-10-19] MEDS: AMIODARONE INJ 450 MG in DEXTROSE 5% 241 ML IV SCH ×2 (16:45→20:18)
[2020-10-19] MEDS: carvediloL 6.25 MG TABLET PO SCH (20:17)
[2020-10-19] MEDS: ROSUVASTATIN 20 MG TABLET PO SCH (20:17)
[2020-10-19] MEDS ORDERED: carvediloL 3.125 MG TABLET PO SCH (21:00)
[2020-10-19] MEDS: FLUTICASONE 50 MCG NASAL SPRAY 16 GM BOTTLE BOTH NARES SCH (22:32)
[2020-10-20] MEDS ORDERED: ETOMIDATE 20 MG/10 ML VIAL IV ONE ×2 (04:38→04:49)
[2020-10-20] MEDS ORDERED: VECURONIUM 10 MG VIAL IV ONE ×2 (04:38→04:52)
[2020-10-20] MEDS ORDERED: FUROSEMIDE 40 MG/4 ML VIAL IV ONE (05:06)
[2020-10-20 05:44] LABS: ABG Base Excess 1.7 MMOL/L (-2.5-2.5); ABG PH 7.347 (7.35-7.45); Allen Test Positive; Pt O2 Delivery Device Ventilator
[2020-10-20 05:54] LABS: Basophils % 0.3 % (0.0-0.8); Eosinophils # 0.1 10*3/uL (0.0-0.87); Eosinophils % 1.3 % (0.00-10.9); Hematocrit 30.1 VOL% (42.0-52.0); Hemoglobin 8.9 GM/DL (14.0-18.0); Immature Granulocytes % 0.6 %; Immature Granulocytes Absolute 0.06 #; Lymphocytes # 0.9 10*3/uL (1.4-4.0); Lymphocytes % 8.6 % (21.2-54.2); Mean Corpuscular HGB Conc 29.6 GM/DL (32-36); Mean Corpuscular Volume 97.1 FL (87-102); Mean Platelet Volume 9.7 FL (9.6-12.0); Monocytes % 4.4 % (1.7-12.7); Neutrophils % 84.8 % (38.7-73.9); Platelet Count 228 T/CUMM (130-400); Red Cell Distribution Width 15.1 % (9.3-17.3); White Blood Count 10.2 T/CUMM (4-12)
[2020-10-20 06:08] LABS: Amorphous Crystals,Urine Occasional /HPF (Few); Bacteria,Urine Occasional /HPF (Few); Bilirubin,Urine Negative (Negative); Blood, Urine Moderate mg/dL (Negative); Glucose,Urine (UA) 50 mg/dL (Negative); Hyaline Casts,Urine 1 /LPF (0-3); Ketones,Urine Negative (Negative); Mucus,Urine Occasional /LPF (Occasional); Nitrite,Urine Negative (Negative); Protein,Urine 100 MG/DL; RBC,Urine 40 /HPF (0-4); Squamous Epithelial Cell,Urine Occasional /HPF (0-10); Urine Appearance CLOUDY (Clear); Urine Color Amber (Yellow); Urine Specific Gravity 1.016 (1.001-1.035); Urine Urobilinogen < 2.0 EU/DL (0.2-1.0)
[2020-10-20 06:25] LABS: Calcium 8.2 MG/DL (8.5-10.1); Potassium 3.9 MMOL/L (3.5-5.1)
[2020-10-20] MEDS: DIGOXIN 0.5 MG/2 ML AMP IV SCH ×3 (06:40→17:58)
[2020-10-20] MEDS ORDERED: DIGOXIN 0.5 MG/2 ML AMP IV ONE (06:54)
[2020-10-20] MEDS: PIPERACILLIN/TAZOBACTAM 3,375 MG in SODIUM CHLORIDE 0.9% 100 ML IV SCH ×3 (06:54→22:08)
[2020-10-20] MEDS: AMIODARONE INJ 450 MG in DEXTROSE 5% 241 ML IV SCH ×2 (07:51→22:48)
[2020-10-20 09:01] LABS: ABG Base Excess 3.7 MMOL/L (-2.5-2.5); ABG HCO3 27.8 MMOL/L (20-26); ABG PCO2 35.1 MM HG (35-48); ABG PH 7.494 (7.35-7.45); ABG TCO2 24.9 MMOL/L (23-27); Allen Test Positive; Pt O2 Delivery Device Ventilator
[2020-10-20] MEDS: NOREPINEPHRINE 8 MG in SODIUM CHLORIDE 0.9% 242 ML IV PRN (09:37)
[2020-10-20] MEDS: ISOSORBIDE MONONITRATE 20 MG TABLET PO SCH ×2 (09:50→20:35)
[2020-10-20] MEDS: carvediloL 6.25 MG TABLET PO SCH ×2 (09:50→20:34)
[2020-10-20] MEDS: AMIODARONE 200 MG TABLET PO SCH ×2 (09:50→20:35)
[2020-10-20] MEDS: RIVAROXABAN 15 MG TABLET PO SCH (09:50)
[2020-10-20] MEDS: ASCORBIC ACID 500 MG TABLET PO SCH ×2 (09:50→20:33)
[2020-10-20] MEDS: FUROSEMIDE 40 MG/4 ML VIAL IV SCH ×2 (09:50→15:59)
[2020-10-20] MEDS: CLOPIDOGREL 75 MG TABLET PO SCH (09:50)
[2020-10-20] MEDS: RANOLAZINE 500 MG TABLET PO SCH ×2 (09:50→20:34)
[2020-10-20] MEDS: FLUTICASONE 50 MCG NASAL SPRAY 16 GM BOTTLE BOTH NARES SCH ×2 (09:50→20:35)
[2020-10-20] MEDS: DILTIAZEM 30 MG TABLET PO SCH ×3 (12:19→17:57)
[2020-10-20] MEDS: INSULIN LISPRO 100 UNIT/ML SUBCUT SCH ×2 (12:21→17:57)
[2020-10-20] MEDS: ROSUVASTATIN 20 MG TABLET PO SCH (20:33)
[2020-10-21] MEDS: DILTIAZEM 30 MG TABLET PO SCH ×3 (01:22→12:30)
[2020-10-21] MEDS: INSULIN LISPRO 100 UNIT/ML SUBCUT SCH ×4 (01:23→18:21)
[2020-10-21 04:53] LABS: ABG Base Excess 5.2 MMOL/L (-2.5-2.5); ABG HCO3 29.2 MMOL/L (20-26); ABG Oxygen Saturation 99.7 % (95-100); ABG PCO2 30.4 MM HG (35-48); ABG TCO2 24.8 MMOL/L (23-27); Allen Test Positive; Pt O2 Delivery Device Ventilator
[2020-10-21 05:35] LABS: Basophils % 0.4 % (0.0-0.8); Eosinophils # 0.3 10*3/uL (0.0-0.87); Eosinophils % 3.2 % (0.00-10.9); Immature Granulocytes % 0.7 %; Immature Granulocytes Absolute 0.07 #; Lymphocytes # 1.4 10*3/uL (1.4-4.0); Lymphocytes % 14.2 % (21.2-54.2); Mean Corpuscular HGB Conc 32.6 GM/DL (32-36); Mean Corpuscular Volume 88.8 FL (87-102); Mean Platelet Volume 9.9 FL (9.6-12.0); Monocytes % 4.9 % (1.7-12.7); Neutrophils % 76.6 % (38.7-73.9); Platelet Count 214 T/CUMM (130-400); Red Blood Count 2.49 MC/CUMM (3.8-5.5); White Blood Count 9.7 T/CUMM (4-12)
[2020-10-21 05:36] LABS: Hemoglobin 7.2 GM/DL (14.0-18.0)
[2020-10-21 05:37] LABS: Hematocrit 22.1 VOL% (42.0-52.0)
[2020-10-21 06:00] LABS: Potassium 3.2 MMOL/L (3.5-5.1)
[2020-10-21] MEDS: PIPERACILLIN/TAZOBACTAM 3,375 MG in SODIUM CHLORIDE 0.9% 100 ML IV SCH ×3 (06:12→22:06)
[2020-10-21 06:17] LABS: Anisocytosis 2+; Hypochromasia 1+; Macrocytosis Slight; Platelet Estimate Normal
[2020-10-21] MEDS: AMIODARONE 200 MG TABLET PO SCH ×2 (08:01→21:15)
[2020-10-21] MEDS: ISOSORBIDE MONONITRATE 20 MG TABLET PO SCH ×2 (08:01→21:22)
[2020-10-21] MEDS: carvediloL 6.25 MG TABLET PO SCH ×2 (08:01→21:16)
[2020-10-21] MEDS: FLUTICASONE 50 MCG NASAL SPRAY 16 GM BOTTLE BOTH NARES SCH ×2 (08:01→21:15)
[2020-10-21] MEDS: CLOPIDOGREL 75 MG TABLET PO SCH (08:02)
[2020-10-21] MEDS: ASCORBIC ACID 500 MG TABLET PO SCH ×2 (08:02→21:14)
[2020-10-21] MEDS: RANOLAZINE 500 MG TABLET PO SCH ×2 (08:02→21:16)
[2020-10-21] MEDS: RIVAROXABAN 15 MG TABLET PO SCH (08:26)
[2020-10-21 08:55] LABS: Basophils % 0.2 % (0.0-0.8); Eosinophils # 0.2 10*3/uL (0.0-0.87); Eosinophils % 2.4 % (0.00-10.9); Hematocrit 20.7 VOL% (42.0-52.0); Hemoglobin 6.7 GM/DL (14.0-18.0); Immature Granulocytes % 0.7 %; Immature Granulocytes Absolute 0.06 #; Lymphocytes # 1.1 10*3/uL (1.4-4.0); Lymphocytes % 12.7 % (21.2-54.2); Mean Corpuscular HGB Conc 32.4 GM/DL (32-36); Mean Corpuscular Volume 88.5 FL (87-102); Mean Platelet Volume 9.8 FL (9.6-12.0); Monocytes % 4.6 % (1.7-12.7); Neutrophils % 79.4 % (38.7-73.9); Platelet Count 184 T/CUMM (130-400); Red Blood Count 2.34 MC/CUMM (3.8-5.5); Red Cell Distribution Width 15.4 % (9.3-17.3); White Blood Count 8.9 T/CUMM (4-12)
[2020-10-21] MEDS ORDERED: DIGOXIN 0.5 MG/2 ML AMP IV SCH (09:00)
[2020-10-21] MEDS ORDERED: POTASSIUM CHLORIDE RIDER 20 MEQ/100 ML PREMIX IV ONE ×2 (09:20→16:00)
[2020-10-21] MEDS: FUROSEMIDE 40 MG/4 ML VIAL IV SCH (10:37)
[2020-10-21] MEDS ORDERED: SODIUM CHLORIDE 0.9% 1,000 ML IV PRN (11:15)
[2020-10-21] MEDS: PANTOPRAZOLE 40 MG VIAL IV SCH ×2 (12:30→21:23)
[2020-10-21] MEDS: AMIODARONE INJ 450 MG in DEXTROSE 5% 241 ML IV SCH (12:31)
[2020-10-21] MEDS: NOREPINEPHRINE 8 MG in SODIUM CHLORIDE 0.9% 242 ML IV PRN (13:47)
[2020-10-21 19:26] LABS: Hematocrit 29.2 VOL% (42.0-52.0)
[2020-10-21 19:27] LABS: Hemoglobin 9.6 GM/DL (14.0-18.0)
[2020-10-21] MEDS: ROSUVASTATIN 20 MG TABLET PO SCH (21:17)
[2020-10-22] MEDS: INSULIN LISPRO 100 UNIT/ML SUBCUT SCH ×4 (00:58→17:59)
[2020-10-22 01:06] LABS: Hematocrit 25.6 VOL% (42.0-52.0); Hemoglobin 8.4 GM/DL (14.0-18.0)
[2020-10-22] MEDS: AMIODARONE INJ 450 MG in DEXTROSE 5% 241 ML IV SCH (03:00)
[2020-10-22 04:36] LABS: Allen Test Positive; Pt O2 Delivery Device Ventilator
[2020-10-22 04:38] LABS: ABG Base Excess 2.9 MMOL/L (-2.5-2.5); ABG Oxygen Saturation 99.1 % (95-100); ABG PCO2 33.8 MM HG (35-48); ABG PH 7.504 (7.35-7.45); ABG PO2 383.3 MM HG (80-95)
[2020-10-22 05:15] LABS: Basophils % 0.5 % (0.0-0.8); Eosinophils # 0.3 10*3/uL (0.0-0.87); Eosinophils % 3.9 % (0.00-10.9); Hematocrit 25.1 VOL% (42.0-52.0); Hemoglobin 8.6 GM/DL (14.0-18.0); Immature Granulocytes % 0.7 %; Immature Granulocytes Absolute 0.05 #; Lymphocytes % 13.3 % (21.2-54.2); Mean Corpuscular HGB Conc 34.3 GM/DL (32-36); Mean Corpuscular Volume 85.7 FL (87-102); Mean Platelet Volume 10.6 FL (9.6-12.0); Neutrophils % 76.6 % (38.7-73.9); Platelet Count 164 T/CUMM (130-400); Red Blood Count 2.93 MC/CUMM (3.8-5.5); Red Cell Distribution Width 15.9 % (9.3-17.3); White Blood Count 7.6 T/CUMM (4-12)
[2020-10-22] MEDS: PIPERACILLIN/TAZOBACTAM 3,375 MG in SODIUM CHLORIDE 0.9% 100 ML IV SCH ×2 (06:02→17:00)
[2020-10-22 08:16] LABS: Hematocrit 25.4 VOL% (42.0-52.0); Hemoglobin 8.4 GM/DL (14.0-18.0)
[2020-10-22 08:36] LABS: Albumin 1.8 G/DL (3.4-5.0); Bilirubin,Total 0.8 MG/DL (0.2-1.0); Calcium 7.7 MG/DL (8.5-10.1); Osmolality,Calculated 298.4 MOS/KG (273-304); Potassium 3.5 MMOL/L (3.5-5.1); Total Protein 5.6 G/DL (6.4-8.2)
[2020-10-22] MEDS: PANTOPRAZOLE 40 MG VIAL IV SCH ×2 (08:40→20:54)
[2020-10-22] MEDS: AMIODARONE 200 MG TABLET PO SCH ×2 (08:40→20:53)
[2020-10-22] MEDS: ISOSORBIDE MONONITRATE 20 MG TABLET PO SCH ×2 (08:40→20:55)
[2020-10-22] MEDS: CLOPIDOGREL 75 MG TABLET PO SCH (08:40)
[2020-10-22] MEDS: FLUTICASONE 50 MCG NASAL SPRAY 16 GM BOTTLE BOTH NARES SCH ×2 (08:40→20:55)
[2020-10-22] MEDS: RANOLAZINE 500 MG TABLET PO SCH ×2 (08:40→20:52)
[2020-10-22] MEDS: carvediloL 6.25 MG TABLET PO SCH ×2 (08:40→20:55)
[2020-10-22] MEDS: ASCORBIC ACID 500 MG TABLET PO SCH ×2 (08:41→20:53)
[2020-10-22] MEDS: ROSUVASTATIN 20 MG TABLET PO SCH (20:52)
[2020-10-23] MEDS: INSULIN LISPRO 100 UNIT/ML SUBCUT SCH ×5 (00:56→23:11)
[2020-10-23] MEDS: PIPERACILLIN/TAZOBACTAM 3,375 MG in SODIUM CHLORIDE 0.9% 100 ML IV SCH ×4 (00:56→23:10)
[2020-10-23 04:46] LABS: ABG Base Excess 2.8 MMOL/L (-2.5-2.5); ABG HCO3 27.2 MMOL/L (20-26); ABG Oxygen Saturation 97.1 % (95-100); ABG PH 7.439 (7.35-7.45); ABG TCO2 28.4 MMOL/L (23-27); Allen Test Positive; Pt O2 Delivery Device Ventilator
[2020-10-23 05:07] LABS: Basophils % 0.5 % (0.0-0.8); Eosinophils # 0.5 10*3/uL (0.0-0.87); Eosinophils % 7.3 % (0.00-10.9); Hematocrit 29.4 VOL% (42.0-52.0); Hemoglobin 9.2 GM/DL (14.0-18.0); Immature Granulocytes % 0.5 %; Immature Granulocytes Absolute 0.04 #; Lymphocytes # 1.1 10*3/uL (1.4-4.0); Lymphocytes % 15.7 % (21.2-54.2); Mean Corpuscular HGB Conc 31.3 GM/DL (32-36); Mean Corpuscular Volume 90.7 FL (87-102); Mean Platelet Volume 10.4 FL (9.6-12.0); Monocytes % 7.8 % (1.7-12.7); Neutrophils % 68.2 % (38.7-73.9); Platelet Count 177 T/CUMM (130-400); Red Blood Count 3.24 MC/CUMM (3.8-5.5); Red Cell Distribution Width 16.1 % (9.3-17.3); White Blood Count 7.3 T/CUMM (4-12)
[2020-10-23 05:23] LABS: Osmolality,Calculated 295.4 MOS/KG (273-304); Potassium 3.9 MMOL/L (3.5-5.1)
[2020-10-23 07:40] VITALS: BP 139/53
[2020-10-23] MEDS: PANTOPRAZOLE 40 MG VIAL IV SCH ×2 (08:30→21:33)
[2020-10-23] MEDS: CLOPIDOGREL 75 MG TABLET PO SCH (08:31)
[2020-10-23] MEDS: RANOLAZINE 500 MG TABLET PO SCH ×2 (08:31→21:28)
[2020-10-23] MEDS: AMIODARONE 200 MG TABLET PO SCH ×2 (08:31→21:27)
[2020-10-23] MEDS: ASCORBIC ACID 500 MG TABLET PO SCH ×2 (08:31→21:29)
[2020-10-23] MEDS: carvediloL 6.25 MG TABLET PO SCH ×2 (08:31→21:31)
[2020-10-23] MEDS: FLUTICASONE 50 MCG NASAL SPRAY 16 GM BOTTLE BOTH NARES SCH ×2 (08:31→21:30)
[2020-10-23] MEDS: ISOSORBIDE MONONITRATE 20 MG TABLET PO SCH ×2 (08:31→21:31)
[2020-10-23] MEDS: APIXABAN 2.5 MG TABLET PO SCH ×2 (16:11→21:32)
[2020-10-23] MEDS ORDERED: ALBUTEROL/IPRATROPIUM 3 ML NEB RESP TX PRN (18:21)
[2020-10-23] MEDS ORDERED: FUROSEMIDE 40 MG/4 ML VIAL IV ONE (18:31)
[2020-10-23] MEDS: ROSUVASTATIN 20 MG TABLET PO SCH (21:28)
[2020-10-23] MEDS: TAMSULOSIN 0.4 MG CAPSULE PO SCH (21:30)
[2020-10-24 03:07] LABS: ABG Base Excess 3.8 MMOL/L (-2.5-2.5); ABG HCO3 27.9 MMOL/L (20-26); ABG Oxygen Saturation 98.5 % (95-100); ABG PCO2 39.9 MM HG (35-48); ABG PH 7.455 (7.35-7.45); ABG TCO2 25.9 MMOL/L (23-27)
[2020-10-24 05:13] LABS: Basophils % 0.6 % (0.0-0.8); Eosinophils # 0.6 10*3/uL (0.0-0.87); Eosinophils % 9.7 % (0.00-10.9); Hematocrit 30.3 VOL% (42.0-52.0); Hemoglobin 9.2 GM/DL (14.0-18.0); Immature Granulocytes % 0.8 %; Immature Granulocytes Absolute 0.05 #; Lymphocytes % 14.7 % (21.2-54.2); Mean Corpuscular HGB Conc 30.4 GM/DL (32-36); Mean Corpuscular Volume 94.4 FL (87-102); Mean Platelet Volume 10.3 FL (9.6-12.0); Monocytes % 7.3 % (1.7-12.7); Neutrophils % 66.9 % (38.7-73.9); Platelet Count 175 T/CUMM (130-400); Red Blood Count 3.21 MC/CUMM (3.8-5.5); Red Cell Distribution Width 15.7 % (9.3-17.3); White Blood Count 6.6 T/CUMM (4-12)
[2020-10-24 05:31] LABS: Calcium 8.4 MG/DL (8.5-10.1); Osmolality,Calculated 289.5 MOS/KG (273-304); Potassium 3.3 MMOL/L (3.5-5.1)
[2020-10-24] MEDS: INSULIN LISPRO 100 UNIT/ML SUBCUT SCH ×3 (05:42→17:55)
[2020-10-24] MEDS: PIPERACILLIN/TAZOBACTAM 3,375 MG in SODIUM CHLORIDE 0.9% 100 ML IV SCH ×2 (06:20→14:28)
[2020-10-24] MEDS: PANTOPRAZOLE 40 MG VIAL IV SCH ×2 (08:22→20:45)
[2020-10-24] MEDS: RANOLAZINE 500 MG TABLET PO SCH ×2 (08:23→20:37)
[2020-10-24] MEDS: CLOPIDOGREL 75 MG TABLET PO SCH (08:23)
[2020-10-24] MEDS: ISOSORBIDE MONONITRATE 20 MG TABLET PO SCH ×2 (08:23→20:36)
[2020-10-24] MEDS: carvediloL 6.25 MG TABLET PO SCH ×2 (08:23→20:37)
[2020-10-24] MEDS: APIXABAN 2.5 MG TABLET PO SCH ×2 (08:23→20:38)
[2020-10-24] MEDS: ASCORBIC ACID 500 MG TABLET PO SCH ×2 (08:23→20:37)
[2020-10-24] MEDS: TAMSULOSIN 0.4 MG CAPSULE PO SCH ×2 (08:23→20:36)
[2020-10-24] MEDS: AMIODARONE 200 MG TABLET PO SCH ×2 (08:23→20:39)
[2020-10-24] MEDS: CHOLECALCIFEROL 1,000 UNIT TABLET PO SCH (08:23)
[2020-10-24] MEDS ORDERED: POTASSIUM CHLORIDE 20 MEQ TABLET PO PRN (08:24)
[2020-10-24] MEDS ORDERED: FUROSEMIDE 40 MG TABLET PO SCH (09:00)
[2020-10-24] MEDS: FUROSEMIDE 80 MG TABLET PO SCH (09:20)
[2020-10-24] MEDS: FLUTICASONE 50 MCG NASAL SPRAY 16 GM BOTTLE BOTH NARES SCH ×2 (09:40→20:38)
[2020-10-24] MEDS: LINACLOTIDE 145 MCG CAPSULE PO SCH (09:55)
[2020-10-24] MEDS ORDERED: POTASSIUM CHLORIDE 20 MEQ TABLET PO ONE (13:14)
[2020-10-24] MEDS ORDERED: amLODIPine 2.5 MG TABLET PO ONE (14:15)
[2020-10-24] MEDS: hydrALAZINE 25 MG TABLET PO SCH ×2 (14:28→20:38)
[2020-10-24] MEDS: ROSUVASTATIN 20 MG TABLET PO SCH (20:37)
[2020-10-25] MEDS: PIPERACILLIN/TAZOBACTAM 3,375 MG in SODIUM CHLORIDE 0.9% 100 ML IV SCH ×4 (00:02→22:52)
[2020-10-25] MEDS: INSULIN LISPRO 100 UNIT/ML SUBCUT SCH ×4 (00:15→17:47)
[2020-10-25 04:26] LABS: Basophils % 0.5 % (0.0-0.8); Eosinophils # 0.7 10*3/uL (0.0-0.87); Eosinophils % 10.5 % (0.00-10.9); Hematocrit 26.6 VOL% (42.0-52.0); Hemoglobin 8.8 GM/DL (14.0-18.0); Immature Granulocytes % 0.6 %; Immature Granulocytes Absolute 0.04 #; Lymphocytes # 1.2 10*3/uL (1.4-4.0); Lymphocytes % 17.7 % (21.2-54.2); Mean Corpuscular HGB Conc 33.1 GM/DL (32-36); Mean Corpuscular Volume 88.4 FL (87-102); Mean Platelet Volume 10.3 FL (9.6-12.0); Monocytes % 7.9 % (1.7-12.7); Neutrophils % 62.8 % (38.7-73.9); Platelet Count 195 T/CUMM (130-400); Red Blood Count 3.01 MC/CUMM (3.8-5.5); Red Cell Distribution Width 15.2 % (9.3-17.3); White Blood Count 6.6 T/CUMM (4-12)
[2020-10-25 04:54] LABS: Calcium 8.3 MG/DL (8.5-10.1); Osmolality,Calculated 291.1 MOS/KG (273-304); Potassium 3.5 MMOL/L (3.5-5.1)
[2020-10-25] MEDS: PANTOPRAZOLE 40 MG VIAL IV SCH ×2 (08:00→20:25)
[2020-10-25] MEDS: TAMSULOSIN 0.4 MG CAPSULE PO SCH ×2 (08:02→20:25)
[2020-10-25] MEDS: APIXABAN 2.5 MG TABLET PO SCH (08:02)
[2020-10-25] MEDS: carvediloL 6.25 MG TABLET PO SCH ×2 (08:02→20:25)
[2020-10-25] MEDS: LINACLOTIDE 145 MCG CAPSULE PO SCH (08:02)
[2020-10-25] MEDS: amLODIPine 2.5 MG TABLET PO SCH (08:02)
[2020-10-25] MEDS: ASCORBIC ACID 500 MG TABLET PO SCH ×2 (08:03→20:26)
[2020-10-25] MEDS: FUROSEMIDE 80 MG TABLET PO SCH (08:03)
[2020-10-25] MEDS: CLOPIDOGREL 75 MG TABLET PO SCH (08:03)
[2020-10-25] MEDS: ISOSORBIDE MONONITRATE 20 MG TABLET PO SCH ×2 (08:03→20:26)
[2020-10-25] MEDS: RANOLAZINE 500 MG TABLET PO SCH ×2 (08:03→20:25)
[2020-10-25] MEDS: CHOLECALCIFEROL 1,000 UNIT TABLET PO SCH (08:03)
[2020-10-25] MEDS: AMIODARONE 200 MG TABLET PO SCH ×2 (08:04→20:26)
[2020-10-25] MEDS: hydrALAZINE 25 MG TABLET PO SCH ×3 (08:04→20:26)
[2020-10-25] MEDS: FLUTICASONE 50 MCG NASAL SPRAY 16 GM BOTTLE BOTH NARES SCH ×2 (08:16→20:44)
[2020-10-25] MEDS: ROSUVASTATIN 20 MG TABLET PO SCH (20:25)
[2020-10-26] MEDS: INSULIN LISPRO 100 UNIT/ML SUBCUT SCH ×3 (00:02→11:13)
[2020-10-26] MEDS: PIPERACILLIN/TAZOBACTAM 3,375 MG in SODIUM CHLORIDE 0.9% 100 ML IV SCH (06:27)
[2020-10-26 06:40] LABS: Basophils % 0.5 % (0.0-0.8); Eosinophils # 0.7 10*3/uL (0.0-0.87); Eosinophils % 8.5 % (0.00-10.9); Hematocrit 28.6 VOL% (42.0-52.0); Hemoglobin 9.2 GM/DL (14.0-18.0); Immature Granulocytes % 0.9 %; Immature Granulocytes Absolute 0.07 #; Lymphocytes # 1.1 10*3/uL (1.4-4.0); Lymphocytes % 14.8 % (21.2-54.2); Mean Corpuscular HGB Conc 32.2 GM/DL (32-36); Mean Corpuscular Volume 89.4 FL (87-102); Mean Platelet Volume 10.1 FL (9.6-12.0); Monocytes % 7.8 % (1.7-12.7); Neutrophils % 67.5 % (38.7-73.9); Platelet Count 219 T/CUMM (130-400); Red Cell Distribution Width 14.8 % (9.3-17.3); White Blood Count 7.7 T/CUMM (4-12)
[2020-10-26 07:10] LABS: Calcium 8.5 MG/DL (8.5-10.1); Osmolality,Calculated 282.7 MOS/KG (273-304); Potassium 3.3 MMOL/L (3.5-5.1)
[2020-10-26] MEDS: PANTOPRAZOLE 40 MG VIAL IV SCH (08:05)
[2020-10-26] MEDS: ISOSORBIDE MONONITRATE 20 MG TABLET PO SCH (08:08)
[2020-10-26] MEDS: RANOLAZINE 500 MG TABLET PO SCH (08:08)
[2020-10-26] MEDS: FUROSEMIDE 80 MG TABLET PO SCH (08:09)
[2020-10-26] MEDS: AMIODARONE 200 MG TABLET PO SCH (08:09)
[2020-10-26] MEDS: carvediloL 6.25 MG TABLET PO SCH (08:09)
[2020-10-26] MEDS: ASCORBIC ACID 500 MG TABLET PO SCH (08:09)
[2020-10-26] MEDS: CLOPIDOGREL 75 MG TABLET PO SCH (08:09)
[2020-10-26] MEDS: CHOLECALCIFEROL 1,000 UNIT TABLET PO SCH (08:09)
[2020-10-26] MEDS: hydrALAZINE 25 MG TABLET PO SCH (08:09)
[2020-10-26] MEDS: LINACLOTIDE 145 MCG CAPSULE PO SCH (08:09)
[2020-10-26] MEDS: TAMSULOSIN 0.4 MG CAPSULE PO SCH (08:09)
[2020-10-26] MEDS: FLUTICASONE 50 MCG NASAL SPRAY 16 GM BOTTLE BOTH NARES SCH (08:11)
[2020-10-26] MEDS: amLODIPine 2.5 MG TABLET PO SCH (08:13)
[2020-10-26] MEDS ORDERED: ASPIRIN EC 81 MG TABLET PO SCH (09:00)
[2020-10-26] MEDS: POTASSIUM CHLORIDE 20 MEQ TABLET PO PRN ×2 (09:26→11:06)
[2020-10-26] MEDS ORDERED: PANTOPRAZOLE 40 MG TABLET PO SCH (09:30)
[2020-10-27] MEDS ORDERED: amLODIPine 5 MG TABLET PO SCH (09:00)
== END 2020-10-26 13:47 | disposition home health service (06) | DRG 308 ==
LOC: EDUNIT# → EDBD → N.ED 21:33 → SUATTDRO 23:15 → N.EDINP 23:15 → N.TELES 10-19 02:51 → N.CC 10-20 04:43
PROVIDERS: ADMIT Internal Medicine; ATTEND Internal Medicine

== ENCOUNTER 2020-11-10 22:41 | Inpatient (IN) ==
[2020-11-10 23:16] LABS: ABG Base Excess 0.5 MMOL/L (-2.5-2.5); ABG HCO3 24.7 MMOL/L (20-26); ABG PCO2 59.1 MM HG (35-48); ABG PH 7.284 (7.35-7.45); ABG PO2 68.8 MM HG (80-95); ABG TCO2 26.2 MMOL/L (23-27)
[2020-11-10 23:20] LABS: Basophils # 0.1 10*3/uL (0.0-0.2); Basophils % 0.3 % (0.0-0.8); Eosinophils # 0.3 10*3/uL (0.0-0.87); Hematocrit 28.5 VOL% (42.0-52.0); Hemoglobin 8.9 GM/DL (14.0-18.0); Immature Granulocytes % 1.6 %; Immature Granulocytes Absolute 0.25 #; Lymphocytes # 2.6 10*3/uL (1.4-4.0); Lymphocytes % 16.3 % (21.2-54.2); Mean Corpuscular HGB Conc 31.2 GM/DL (32-36); Mean Corpuscular Volume 93.8 FL (87-102); Mean Platelet Volume 10.4 FL (9.6-12.0); Monocytes % 5.5 % (1.7-12.7); Neutrophils % 74.3 % (38.7-73.9); Platelet Count 279 T/CUMM (130-400); Red Blood Count 3.04 MC/CUMM (3.8-5.5); Red Cell Distribution Width 15.7 % (9.3-17.3); White Blood Count 15.8 T/CUMM (4-12)
[2020-11-10 23:31] LABS: Bacteria,Urine Occasional /HPF (Few); Bilirubin,Urine Negative (Negative); Blood, Urine Negative (Negative); Glucose,Urine (UA) Negative (Negative); Ketones,Urine Negative (Negative); Mucus,Urine Occasional /LPF (Occasional); Nitrite,Urine Negative (Negative); Protein,Urine Negative; Squamous Epithelial Cell,Urine Occasional /HPF (0-10); Urine Appearance CLEAR (Clear); Urine Color Yellow (Yellow); Urine Specific Gravity 1.008 (1.001-1.035); Urine Urobilinogen < 2.0 EU/DL (0.2-1.0)
[2020-11-10] MEDS ORDERED: FUROSEMIDE 40 MG/4 ML VIAL IV STA (23:32)
[2020-11-10 23:36] LABS: Albumin 2.8 G/DL (3.4-5.0); Bilirubin,Total 1.1 MG/DL (0.2-1.0); Calcium 8.4 MG/DL (8.5-10.1); Osmolality,Calculated 280.2 MOS/KG (273-304); Potassium 4.1 MMOL/L (3.5-5.1); Total Protein 7.4 G/DL (6.4-8.2)
[2020-11-10 23:41] LABS: PT Patient Result 11.6 SECS (10.5-12.0)
[2020-11-11] MEDS ORDERED: LEVOFLOXACIN INJ 500 MG/100 ML PREMIX IV STA (00:26)
[2020-11-11 01:03] LABS: ABG Base Excess 2.9 MMOL/L (-2.5-2.5); ABG HCO3 28.2 MMOL/L (20-26); ABG PCO2 45.4 MM HG (35-48); ABG PH 7.411 (7.35-7.45); ABG PO2 179.4 MM HG (80-95); ABG TCO2 29.6 MMOL/L (23-27)
[2020-11-11 01:04] LABS: ABG Oxygen Saturation 99.2 % (95-100)
[2020-11-11] MEDS ORDERED: hydrALAZINE 20 MG/1 ML VIAL IV PRN (02:37)
[2020-11-11] MEDS ORDERED: NICOTINE 21 MG/24 HR PATCH TRANSDERM PRN (02:37)
[2020-11-11] MEDS ORDERED: MORPHINE 4 MG/1 ML VIAL IV PRN (02:37)
[2020-11-11] MEDS ORDERED: DEXTROSE 50% 25 GM/50 ML VIAL IV PRN ×2 (02:37→11:38)
[2020-11-11] MEDS ORDERED: ONDANSETRON 4 MG/2 ML VIAL IV PRN (02:37)
[2020-11-11] MEDS ORDERED: GLUCAGON 1 MG VIAL IM PRN (02:37)
[2020-11-11] MEDS ORDERED: ACETAMINOPHEN 325 MG TABLET PO PRN (02:37)
[2020-11-11] MEDS ORDERED: ENOXAPARIN 100 MG/ML SYRINGE SUBCUT ONE (06:38)
[2020-11-11] MEDS ORDERED: NITROGLYCERIN SL 0.4 MG TABLET SL PRN (06:39)
[2020-11-11] MEDS: INSULIN REGULAR 100 UNIT/ML SUBCUT SCH ×4 (07:54→20:35)
[2020-11-11] MEDS: CLOPIDOGREL 75 MG TABLET PO SCH (08:23)
[2020-11-11] MEDS: amLODIPine 5 MG TABLET PO SCH (08:23)
[2020-11-11] MEDS: carvediloL 6.25 MG TABLET PO SCH ×2 (08:23→16:42)
[2020-11-11] MEDS: cefTRIAXone 1,000 MG in SODIUM CHLORIDE 0.9% 100 ML IV SCH (08:24)
[2020-11-11] MEDS: FUROSEMIDE 40 MG/4 ML VIAL IV SCH ×2 (08:24→16:42)
[2020-11-11] MEDS: AZITHROMYCIN INJ 500 MG in SODIUM CHLORIDE 0.9% 250 ML IV SCH (08:25)
[2020-11-11] MEDS: ALBUTEROL/IPRATROPIUM 3 ML NEB RESP TX SCH ×3 (08:57→19:55)
[2020-11-11] MEDS ORDERED: AMIODARONE 200 MG TABLET PO SCH (09:00)
[2020-11-12] MEDS: ALBUTEROL/IPRATROPIUM 3 ML NEB RESP TX SCH ×6 (01:35→18:47)
[2020-11-12 05:29] LABS: Basophils % 0.4 % (0.0-0.8); Eosinophils # 0.2 10*3/uL (0.0-0.87); Eosinophils % 2.7 % (0.00-10.9); Hematocrit 21.8 VOL% (42.0-52.0); Immature Granulocytes Absolute 0.07 #; Lymphocytes # 1.3 10*3/uL (1.4-4.0); Lymphocytes % 18.7 % (21.2-54.2); Mean Corpuscular HGB Conc 32.1 GM/DL (32-36); Mean Corpuscular Volume 90.8 FL (87-102); Mean Platelet Volume 10.6 FL (9.6-12.0); Monocytes % 8.7 % (1.7-12.7); Neutrophils % 68.5 % (38.7-73.9); Red Cell Distribution Width 15.5 % (9.3-17.3)
[2020-11-12 05:34] LABS: Calcium 8.5 MG/DL (8.5-10.1); Osmolality,Calculated 281.5 MOS/KG (273-304); Platelet Count 171 T/CUMM (130-400); Potassium 3.5 MMOL/L (3.5-5.1)
[2020-11-12 05:39] LABS: Hypochromasia 1+; Microcytosis 1+; Platelet Estimate Adequate
[2020-11-12] MEDS: cefTRIAXone 1,000 MG in SODIUM CHLORIDE 0.9% 100 ML IV SCH (06:27)
[2020-11-12] MEDS ORDERED: SODIUM CHLORIDE 0.9% 1,000 ML IV PRN (08:27)
[2020-11-12] MEDS: INSULIN REGULAR 100 UNIT/ML SUBCUT SCH ×4 (09:09→20:31)
[2020-11-12] MEDS: FUROSEMIDE 40 MG/4 ML VIAL IV SCH ×2 (09:20→17:00)
[2020-11-12] MEDS: AZITHROMYCIN INJ 500 MG in SODIUM CHLORIDE 0.9% 250 ML IV SCH (09:20)
[2020-11-12] MEDS: carvediloL 6.25 MG TABLET PO SCH ×2 (09:20→17:00)
[2020-11-12] MEDS: AMIODARONE 200 MG TABLET PO SCH (09:21)
[2020-11-12] MEDS: CLOPIDOGREL 75 MG TABLET PO SCH (09:21)
[2020-11-12] MEDS: amLODIPine 5 MG TABLET PO SCH (09:21)
[2020-11-12 09:31] LABS: Hematocrit 22.2 VOL% (42.0-52.0)
[2020-11-12 15:21] LABS: Hematocrit 26.7 VOL% (42.0-52.0); Hemoglobin 8.4 GM/DL (14.0-18.0)
[2020-11-12] MEDS ORDERED: LEVOFLOXACIN INJ 500 MG/100 ML PREMIX IV SCH (21:00)
[2020-11-13] MEDS: ALBUTEROL/IPRATROPIUM 3 ML NEB RESP TX SCH ×4 (00:59→19:20)
[2020-11-13 04:50] LABS: Basophils % 0.6 % (0.0-0.8); Eosinophils # 0.3 10*3/uL (0.0-0.87); Eosinophils % 4.4 % (0.00-10.9); Hematocrit 24.8 VOL% (42.0-52.0); Hemoglobin 7.9 GM/DL (14.0-18.0); Immature Granulocytes % 1.1 %; Immature Granulocytes Absolute 0.08 #; Lymphocytes # 1.4 10*3/uL (1.4-4.0); Lymphocytes % 19.1 % (21.2-54.2); Mean Corpuscular HGB Conc 31.9 GM/DL (32-36); Mean Corpuscular Volume 90.8 FL (87-102); Mean Platelet Volume 10.6 FL (9.6-12.0); Monocytes % 7.9 % (1.7-12.7); Neutrophils % 66.9 % (38.7-73.9); Platelet Count 183 T/CUMM (130-400); Red Blood Count 2.73 MC/CUMM (3.8-5.5); Red Cell Distribution Width 15.5 % (9.3-17.3); White Blood Count 7.2 T/CUMM (4-12)
[2020-11-13 05:08] LABS: Calcium 8.7 MG/DL (8.5-10.1); Osmolality,Calculated 281.7 MOS/KG (273-304); Potassium 3.2 MMOL/L (3.5-5.1)
[2020-11-13] MEDS: cefTRIAXone 1,000 MG in SODIUM CHLORIDE 0.9% 100 ML IV SCH (06:11)
[2020-11-13] MEDS: INSULIN REGULAR 100 UNIT/ML SUBCUT SCH ×4 (09:19→21:56)
[2020-11-13] MEDS ORDERED: POTASSIUM CHLORIDE 20 MEQ TABLET PO ONE (09:31)
[2020-11-13] MEDS: FUROSEMIDE 40 MG/4 ML VIAL IV SCH ×2 (09:54→16:29)
[2020-11-13] MEDS: AMIODARONE 200 MG TABLET PO SCH (10:36)
[2020-11-13] MEDS: CLOPIDOGREL 75 MG TABLET PO SCH (10:36)
[2020-11-13] MEDS: amLODIPine 5 MG TABLET PO SCH (10:36)
[2020-11-13] MEDS: AZITHROMYCIN INJ 500 MG in SODIUM CHLORIDE 0.9% 250 ML IV SCH (10:37)
[2020-11-13] MEDS: carvediloL 6.25 MG TABLET PO SCH ×2 (10:39→18:35)
[2020-11-14] MEDS: ALBUTEROL/IPRATROPIUM 3 ML NEB RESP TX SCH ×4 (02:05→19:54)
[2020-11-14 04:41] LABS: Basophils % 0.6 % (0.0-0.8); Eosinophils # 0.5 10*3/uL (0.0-0.87); Eosinophils % 7.4 % (0.00-10.9); Hematocrit 26.9 VOL% (42.0-52.0); Hemoglobin 8.8 GM/DL (14.0-18.0); Immature Granulocytes Absolute 0.07 #; Lymphocytes # 1.3 10*3/uL (1.4-4.0); Lymphocytes % 18.1 % (21.2-54.2); Mean Corpuscular HGB Conc 32.7 GM/DL (32-36); Mean Platelet Volume 10.2 FL (9.6-12.0); Neutrophils % 65.9 % (38.7-73.9); Platelet Count 199 T/CUMM (130-400); Red Blood Count 2.99 MC/CUMM (3.8-5.5); Red Cell Distribution Width 15.2 % (9.3-17.3)
[2020-11-14 05:10] LABS: Calcium 8.6 MG/DL (8.5-10.1); Potassium 3.2 MMOL/L (3.5-5.1)
[2020-11-14] MEDS: INSULIN REGULAR 100 UNIT/ML SUBCUT SCH ×4 (07:22→21:44)
[2020-11-14] MEDS: cefTRIAXone 1,000 MG in SODIUM CHLORIDE 0.9% 100 ML IV SCH (07:24)
[2020-11-14] MEDS ORDERED: POTASSIUM CHLORIDE 20 MEQ TABLET PO PRN (07:25)
[2020-11-14] MEDS ORDERED: POTASSIUM CHLORIDE 20 MEQ TABLET PO ONE (08:30)
[2020-11-14] MEDS: FUROSEMIDE 40 MG/4 ML VIAL IV SCH (08:44)
[2020-11-14] MEDS: CHOLECALCIFEROL 1,000 UNIT TABLET PO SCH (09:35)
[2020-11-14] MEDS: ASPIRIN EC 81 MG TABLET PO SCH (09:35)
[2020-11-14] MEDS: ISOSORBIDE MONONITRATE 20 MG TABLET PO SCH ×2 (09:35→21:43)
[2020-11-14] MEDS: RANOLAZINE 500 MG TABLET PO SCH ×2 (09:35→21:43)
[2020-11-14] MEDS: FUROSEMIDE 40 MG TABLET PO SCH (09:35)
[2020-11-14] MEDS: carvediloL 6.25 MG TABLET PO SCH ×2 (09:36→16:44)
[2020-11-14] MEDS: PANTOPRAZOLE 40 MG TABLET PO SCH (09:36)
[2020-11-14] MEDS: amLODIPine 5 MG TABLET PO SCH (09:36)
[2020-11-14] MEDS: CLOPIDOGREL 75 MG TABLET PO SCH (09:36)
[2020-11-14] MEDS: ASCORBIC ACID 500 MG TABLET PO SCH ×2 (09:36→21:43)
[2020-11-14] MEDS: AMIODARONE 200 MG TABLET PO SCH (09:37)
[2020-11-14] MEDS: AZITHROMYCIN INJ 500 MG in SODIUM CHLORIDE 0.9% 250 ML IV SCH (10:00)
[2020-11-14] MEDS ORDERED: MAGNESIUM SULF RIDER 2 GM/50 ML PREMIX IV PRN (15:38)
[2020-11-14] MEDS ORDERED: POTASSIUM CHLORIDE RIDER 10 MEQ/100 ML PREMIX IV PRN (15:38)
[2020-11-14] MEDS: ROSUVASTATIN 20 MG TABLET PO SCH (21:43)
[2020-11-15] MEDS: ALBUTEROL/IPRATROPIUM 3 ML NEB RESP TX SCH ×4 (00:20→19:24)
[2020-11-15 05:12] LABS: Basophils % 0.6 % (0.0-0.8); Eosinophils # 0.4 10*3/uL (0.0-0.87); Eosinophils % 6.4 % (0.00-10.9); Hematocrit 23.9 VOL% (42.0-52.0); Hemoglobin 7.7 GM/DL (14.0-18.0); Immature Granulocytes % 1.3 %; Immature Granulocytes Absolute 0.09 #; Lymphocytes # 1.3 10*3/uL (1.4-4.0); Lymphocytes % 19.1 % (21.2-54.2); Mean Corpuscular HGB Conc 32.2 GM/DL (32-36); Mean Corpuscular Volume 90.5 FL (87-102); Mean Platelet Volume 10.2 FL (9.6-12.0); Monocytes % 6.5 % (1.7-12.7); Neutrophils % 66.1 % (38.7-73.9); Platelet Count 192 T/CUMM (130-400); Red Blood Count 2.64 MC/CUMM (3.8-5.5); Red Cell Distribution Width 15.2 % (9.3-17.3); White Blood Count 6.8 T/CUMM (4-12)
[2020-11-15 05:14] LABS: Calcium 8.2 MG/DL (8.5-10.1); Osmolality,Calculated 284.5 MOS/KG (273-304); Potassium 3.6 MMOL/L (3.5-5.1)
[2020-11-15 05:35] LABS: Eosinophils 7 % (0-10); Hypochromasia 1+; Lymphocytes 17 % (20-55); Microcytosis 1+; Platelet Estimate Adequate; Segmented Neutrophils 74 % (50-85); Total Cells Counted 100
[2020-11-15] MEDS: cefTRIAXone 1,000 MG in SODIUM CHLORIDE 0.9% 100 ML IV SCH (07:28)
[2020-11-15] MEDS: SODIUM CHLORIDE 0.45% 1,000 ML IV SCH (07:29)
[2020-11-15] MEDS ORDERED: DIAZEPAM 5 MG TABLET PO ONE (08:00)
[2020-11-15] MEDS ORDERED: diphenhydrAMINE CAP 25 MG CAPSULE PO ONE (08:00)
[2020-11-15] MEDS: INSULIN REGULAR 100 UNIT/ML SUBCUT SCH ×4 (08:55→21:05)
[2020-11-15] MEDS: RANOLAZINE 500 MG TABLET PO SCH ×2 (09:06→21:04)
[2020-11-15] MEDS: CLOPIDOGREL 75 MG TABLET PO SCH (09:06)
[2020-11-15] MEDS: ASPIRIN EC 81 MG TABLET PO SCH (09:06)
[2020-11-15] MEDS: CHOLECALCIFEROL 1,000 UNIT TABLET PO SCH (09:06)
[2020-11-15] MEDS: carvediloL 6.25 MG TABLET PO SCH ×2 (09:06→16:41)
[2020-11-15] MEDS: ASCORBIC ACID 500 MG TABLET PO SCH ×2 (09:06→21:04)
[2020-11-15] MEDS: amLODIPine 5 MG TABLET PO SCH (09:07)
[2020-11-15] MEDS: AMIODARONE 200 MG TABLET PO SCH (09:07)
[2020-11-15] MEDS: PANTOPRAZOLE 40 MG TABLET PO SCH (09:07)
[2020-11-15] MEDS: FUROSEMIDE 40 MG TABLET PO SCH (09:07)
[2020-11-15] MEDS: ISOSORBIDE MONONITRATE 20 MG TABLET PO SCH ×2 (09:08→21:04)
[2020-11-15] MEDS: AZITHROMYCIN INJ 500 MG in SODIUM CHLORIDE 0.9% 250 ML IV SCH (09:09)
[2020-11-15] MEDS ORDERED: LIDOCAINE 1% 20 ML VIAL ONE (10:24)
[2020-11-15] MEDS ORDERED: HYDROmorphone 2 MG/1 ML VIAL ONE (10:56)
[2020-11-15] MEDS ORDERED: MIDAZOLAM 2 MG/2 ML VIAL ONE (10:57)
[2020-11-15] MEDS ORDERED: ENOXAPARIN 60 MG/0.6 ML SYRINGE ONE (11:28)
[2020-11-15] MEDS ORDERED: ENOXAPARIN 30 MG/0.3 ML SYRINGE ONE (11:28)
[2020-11-15] MEDS ORDERED: CLOPIDOGREL 300 MG TABLET ONE (12:53)
[2020-11-15] MEDS ORDERED: ZALEPLON 5 MG CAPSULE PO PRN (12:57)
[2020-11-15] MEDS ORDERED: GLUCAGON 1 MG VIAL IM PRN (13:40)
[2020-11-15] MEDS ORDERED: DEXTROSE 50% 25 GM/50 ML VIAL IV PRN (13:40)
[2020-11-15] MEDS: ROSUVASTATIN 20 MG TABLET PO SCH (21:04)
[2020-11-16] MEDS: ALBUTEROL/IPRATROPIUM 3 ML NEB RESP TX SCH ×2 (01:52→07:59)
[2020-11-16] MEDS: SODIUM CHLORIDE 0.45% 1,000 ML IV SCH (02:53)
[2020-11-16 04:29] VITALS: BP 122/62
[2020-11-16 04:50] LABS: Basophils % 0.5 % (0.0-0.8); Eosinophils # 0.4 10*3/uL (0.0-0.87); Eosinophils % 6.4 % (0.00-10.9); Hematocrit 25.5 VOL% (42.0-52.0); Hemoglobin 8.2 GM/DL (14.0-18.0); Immature Granulocytes % 0.8 %; Immature Granulocytes Absolute 0.05 #; Lymphocytes # 0.9 10*3/uL (1.4-4.0); Lymphocytes % 13.7 % (21.2-54.2); Mean Corpuscular HGB Conc 32.2 GM/DL (32-36); Mean Corpuscular Volume 91.1 FL (87-102); Mean Platelet Volume 10.1 FL (9.6-12.0); Monocytes % 8.3 % (1.7-12.7); Neutrophils % 70.3 % (38.7-73.9); Platelet Count 169 T/CUMM (130-400); Red Cell Distribution Width 15.1 % (9.3-17.3); White Blood Count 6.6 T/CUMM (4-12)
[2020-11-16 05:10] LABS: Folate 8.08 NG/ML (5.38-24.0)
[2020-11-16 05:17] LABS: CKMB % 7.2 %
[2020-11-16 05:21] LABS: Calcium 8.4 MG/DL (8.5-10.1); High Sensitive Troponin I* 1897.2 ng/L (0-78); Osmolality,Calculated 276.1 MOS/KG (273-304); Potassium 3.8 MMOL/L (3.5-5.1)
[2020-11-16 05:26] LABS: % Iron Saturation 14.2 % (18-50); Ferritin 277.1 ng/ml (26-388)
[2020-11-16] MEDS: cefTRIAXone 1,000 MG in SODIUM CHLORIDE 0.9% 100 ML IV SCH (06:49)
[2020-11-16] MEDS: ASCORBIC ACID 500 MG TABLET PO SCH (09:28)
[2020-11-16] MEDS: carvediloL 6.25 MG TABLET PO SCH (09:29)
[2020-11-16] MEDS: amLODIPine 5 MG TABLET PO SCH (09:29)
[2020-11-16] MEDS: CLOPIDOGREL 75 MG TABLET PO SCH (09:29)
[2020-11-16] MEDS: PANTOPRAZOLE 40 MG TABLET PO SCH (09:29)
[2020-11-16] MEDS: FUROSEMIDE 40 MG TABLET PO SCH (09:29)
[2020-11-16] MEDS: RANOLAZINE 500 MG TABLET PO SCH (09:29)
[2020-11-16] MEDS: CHOLECALCIFEROL 1,000 UNIT TABLET PO SCH (09:29)
[2020-11-16] MEDS: AMIODARONE 200 MG TABLET PO SCH (09:29)
[2020-11-16] MEDS: ASPIRIN EC 81 MG TABLET PO SCH (09:30)
[2020-11-16] MEDS: INSULIN REGULAR 100 UNIT/ML SUBCUT SCH ×2 (09:30→12:35)
[2020-11-16] MEDS: ISOSORBIDE MONONITRATE 20 MG TABLET PO SCH (09:30)
[2020-11-16] MEDS: AZITHROMYCIN INJ 500 MG in SODIUM CHLORIDE 0.9% 250 ML IV SCH (09:31)
== END 2020-11-16 12:50 | disposition home health service (06) | DRG 246 ==
LOC: EDUNIT# → EDBD → N.ED 22:41 → SUATTDRO 11-11 02:37 → N.EDINP 11-11 02:37 → N.TELEN 11-11 03:11
PROVIDERS: ADMIT Internal Medicine Geriatric Medicine; ATTEND Internal Medicine